=== PATIENT | female | born 1940 | race Caucasian/White ===

== ENCOUNTER → 2018-07-10 | Outpatient (CLI) | payer MEDICARE ==
--- NOTE | 2018-07-13 12:09 | MM ---
Reason for exam: screening (asymptomatic). Last mammogram was performed 1 year ago. History: Patient is postmenopausal. Benign excisional biopsy of the left breast. Physical Findings: A clinical breast exam by your physician is recommended on an annual basis and results should be correlated with mammographic findings. MG 3D Screening Mammo W/Cad Bilateral CC and MLO view(s) were taken. Prior study comparison: July 04, 2017, bilateral MG 3d screening mammo w/cad. January 30, 2016, mammogram, performed at [facility]. The breast tissue is heterogeneously dense. This may lower the sensitivity of mammography. Benign calcifications in the left breast. There is chronic nodularity bilaterally. No significant changes when compared with prior studies. ASSESSMENT: Benign, BI-RAD 2 RECOMMENDATION: Routine screening mammogram of both breasts in 1 year.
== END | disposition home or self-care (01) ==
LOC: RADMAMWWP 10:35
PROVIDERS: ATTEND Internal Medicine
DX: Z12.31 Encounter for screening mammogram for malignant neoplasm of breast (principal)
CPT/HCPCS: 77063; 77067

== ENCOUNTER → 2019-08-19 | Outpatient (CLI) | payer MEDICARE ==
--- NOTE | 2019-08-23 08:44 | MM ---
Reason for exam: screening (asymptomatic). Last mammogram was performed 1 year and 1 month ago. History: Patient is postmenopausal. Benign excisional biopsy of the left breast. Physical Findings: A clinical breast exam by your physician is recommended on an annual basis and results should be correlated with mammographic findings. MG 3D Screening Mammo W/Cad Bilateral CC and MLO view(s) were taken. Prior study comparison: July 10, 2018, bilateral MG 3d screening mammo w/cad. July 04, 2017, bilateral MG 3d screening mammo w/cad. The breast tissue is heterogeneously dense. This may lower the sensitivity of mammography. No significant changes when compared with prior studies. ASSESSMENT: Benign, BI-RAD 2 RECOMMENDATION: Routine screening mammogram of both breasts in 1 year.
== END | disposition home or self-care (01) ==
LOC: RADMAMWWP 11:04
PROVIDERS: ATTEND Internal Medicine
DX: Z12.31 Encounter for screening mammogram for malignant neoplasm of breast (principal)
CPT/HCPCS: 77063; 77067

== ENCOUNTER → 2020-10-20 | Outpatient (CLI) | payer MEDICARE ==
--- NOTE | 2020-10-24 13:53 | MM ---
Reason for exam: additional evaluation requested from prior study. Last mammogram was performed 1 year and 2 months ago. History: Patient is postmenopausal and history of other cancer. Benign excisional biopsy of the left breast. Physical Findings: Nurse did not find any significant physical abnormalities on exam. MG 3D Diag Mammo W/Cad GLADYS Bilateral CC and MLO view(s) were taken. Prior study comparison: August 19, 2019, bilateral MG 3d screening mammo w/cad. July 10, 2018, bilateral MG 3d screening mammo w/cad. The breast tissue is heterogeneously dense. This may lower the sensitivity of mammography. There is chronic nodularity in the left breast. No significant changes when compared with prior studies. ASSESSMENT: Incomplete: need additional imaging evaluation, BI-RAD 0 RECOMMENDATION: Ultrasound of the left breast. Manage patient on a clinical basis.
--- NOTE | 2020-10-24 13:57 | USB ---
Reason for exam: additional evaluation requested from abnormal screening. History: Patient is postmenopausal and history of other cancer. Benign excisional biopsy of the left breast. US Breast Limited LT Left limited breast ultrasound including focal area of concern, retroareolar and axilla demonstrates a 1.4 x 1.6 x 0.7cm irregular, mixed lesion at 12 o'clock for which a biopsy is recommended and a 2.2 x 1.8 x 1.1cm oval lymph node at the axilla. These results were verbally communicated with the patient and result sheet given to the patient on 10/20/20. ASSESSMENT: Suspicious, BI-RAD 4 RECOMMENDATION: Ultrasound core biopsy of the left breast. (12 o'clock) Called Emely Cobb's office with mammographic findings and has scheduled an appointment for the patient for 11/17/20 at 2:[address] Jensen. Biopsy scheduled for 11/08/20 at 10:30. PRELIMINARY REPORT CALLED AND FAXED TO DR. JENSEN ON 10/24/20.
== END | disposition home or self-care (01) ==
LOC: RADMAMWWP 14:14
PROVIDERS: ATTEND Nurse Practitioner Adult Health
DX: N60.01 Solitary cyst of right breast (principal); N60.02 Solitary cyst of left breast; R92.8 Other abnormal and inconclusive findings on diagnostic imaging of breast; N64.4 Mastodynia
CPT/HCPCS: 77066; 76642; G0279; 77062

== ENCOUNTER → 2020-11-08 | Day surgery (SDC) | payer MEDICARE ==
[2020-11-08 10:01] VITALS: BP 153/72; PULSE 105; RESP 16; TEMP 98.1
--- NOTE | 2020-11-08 14:56 | USB ---
EXAMINATION TYPE: US biopsy breast VAD LT, MG post biopsy diagnostic mammo LT wo CAD DATE OF EXAM: 11/08/2020 CLINICAL HISTORY: 80-year-old female R92.8, Abnormal mammogram. Finding incidentally seen during ultrasound of the lateral half of the left breast for pain. TECHNIQUE: Ultrasound guided core biopsy of the 12:00 periareolar left breast. COMPARISON: 10/20/2020 FINDINGS: The procedure of ultrasound guided core biopsy was explained to the patient. Benefits, alternatives, and risks were discussed. An informed consent was then obtained. Indeterminate 1.7 cm ovoid area at the 12:00 periareolar left breast is identified and targeted for biopsy. During real-time scanning, the area may correspond to a dense island of tissue. The patient was placed in supine positioning for imaging and for the procedure. The overlying skin was prepped and draped in usual sterile fashion. Lidocaine was used as anesthetic into the skin and subcutaneous tissue up to area of concern in the 12:00 left breast. Under ultrasound guidance, a 13-gauge vacuum-assisted mammotome biopsy gun was used to obtain 4 core samples. Following this, a ribbon clip was left in lesion. The patient tolerated the procedure well without any immediate complication. The patient was kept in the radiology department for short stay after the procedure and then discharged home in stable condition. Postbiopsy mammogram shows the ribbon clip at or adjacent to an anterior focal asymmetry. IMPRESSION: Successful, uncomplicated ultrasound guided core biopsy of area of concern in the 12:00 anterior left breast, full pathology results to follow. This was incidentally seen during ultrasound for lateral left breast pain. Pathology Results: Benign LEFT BREAST, TWELVE O'CLOCK, CORE BIOPSY: Hypocellular and hylanized stromal fibrosis with focal mild periductal chronic inflammation and focal microcalcification (see note). No evidence of in situ or invasive carcinoma within current specimen. Recommendation Follow up mammogram of the left breast in 6 months. JOSHUA
== END ==
LOC: RADUSWWP 09:36
PROVIDERS: ATTEND Surgery
DX: N60.32 Fibrosclerosis of left breast (principal); R92.0 Mammographic microcalcification found on diagnostic imaging of breast; R92.8 Other abnormal and inconclusive findings on diagnostic imaging of breast; Z88.5 Allergy status to narcotic agent; Z91.09 Other allergy status, other than to drugs and biological substances
CPT/HCPCS: 88305; 77065; 19083; A4648; J2001

== ENCOUNTER → 2020-11-17 | Outpatient (CLI) | payer MEDICARE ==
[2020-11-17 14:28] VITALS: BP 185/76; PULSE 87; RESP 18; TEMP 98.1
--- NOTE | 2020-11-17 16:02 | P.GSHP ---
History of Present Illness H&P Date: 11/17/20 Chief Complaint: Left breast ultrasound abnormality Kisha is an 80 year old white female seen in consultation for Emely Jacbos regarding the radiographic abnormality in the left breast. She initially was complaining of some discomfort in the left breast which had been ongoing for about one month. The pain was located in the 12 to 12:30 position just above the nipple areolar complex. It was described as an uncomfortable sensation. Seen in nature. It is worse when she lays down. He does not associate the onset with any incidents. No trauma, no infection, no change in diet or medications. It is intermittent in nature. It only last for a few minutes when it comes. She had a bilateral mammogram performed on . The mammogram did not show any specific lesions of concern, there was chronic nodularity in the left breast but nothing of concern however secondary to the pain and ultrasound was performed. On the ultrasound an incidental finding of a 1.7 cm open area at the 12:00 lesion was noted and a pleural biopsy was obtained. Core biopsy revealed hypocellular hyalinized stromal fibrosis and focal mild. Ductal chronic inflammation. This was felt to be benign and concordant. The x-rays were reviewed with radiology Dr. So. She has had 2 breast biopsies, open on the left, and one sterobiopsy all benign. The patient does not complain of any lumps masses or nodules in her breast. She is not complaining of any nipple discharge or skin changes. Caffeine: 1 cup of coffee in am nicotine: none chocolate: occasional Family History: sister: uterine brother: bladder cancer 2 paternal aunts: breast cancer Hormonal History: menarche: 10 , 1 miscarriage, breast fed: no, age at first : 18 menopause: hysterectomy at 37, left ovaries BCP: 8 years Surgical History: tonsil appy hysterectomy shoulder 4 bladder suspension 2 breast biopsies Medical History: HTN high cholesterol Social History: smoke: none alcohol: occasional drugs: none - Constitutional Constitutional: Denies chills, Denies fever - EENT Comment: macular degeneration Eyes: denies blurred vision, denies pain Ears: bilateral: tinnitus, deny: decreased hearing Ears, nose, mouth and throat: Denies headache, Denies sore throat - Breasts Breasts: bilateral: as per HPI - Cardiovascular Cardiovascular: Denies chest pain, Denies shortness of breath - Respiratory Respiratory: Denies cough, Denies 7 - Gastrointestinal Gastrointestinal: Reports constipation, Denies abdominal pain, Denies diarrhea, Denies nausea, Denies vomiting - Genitourinary (Female) Comment: 4 bladder suspensions Genitourinary: Denies dysuria, Denies hematuria - Menstruation Menstruation: Reports postmenopausal - Musculoskeletal Musculoskeletal: Denies myalgias - Integumentary Integumentary: Denies pruritus, Denies rash - Neurological Comment: carpal tunnel left hand - Psychiatric Psychiatric: Denies anxiety, Denies depression - Endocrine Endocrine: Denies fatigue, Denies weight change - Hematologic/Lymphatic Comment: baby aspirin - Allergic/Immunologic Allergic/Immunologic: Reports as per HPI 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 History of Any Multi-Drug Resistant Organisms: None Reported Past Surgical History: Appendectomy, Breast Surgery, Hysterectomy, Tonsillectomy Additional Past Surgical History / Comment(s): Bladder suspension, benign excisional biopsy left breast, lip surgery Past Anesthesia/Blood Transfusion Reactions: No Reported Reaction Past Psychological History: No Psychological Hx Reported Smoking Status: Never smoker Past Alcohol Use History: Occasional Past Drug Use History: None Reported - Past Family History Brother(s) Family Medical History: Cancer Additional Family Medical History / Comment(s): bladder cancer Father Family Medical History: Myocardial Infarction ([place]) Additional Family Medical History / Comment(s): Mother Family Medical History: CVA/TIA Sister(s) Family Medical History: Cancer, CVA/TIA Additional Family Medical History / Comment(s): uterine cancer Medications and Allergies Home Medications Medication Instructions Recorded Confirmed Type Amitriptyline HCl [Elavil] 10 mg PO HS 08/20/15 11/17/20 History Ascorbic Acid [Vitamin C] 500 mg PO DAILY 08/20/15 11/17/20 History Aspirin [Adult Low Dose Aspirin EC] 81 mg PO HS 08/20/15 11/17/20 History Glucosamine/Chondr Kay A Sod [Osteo 1 tab PO DAILY 08/20/15 11/17/20 History Bi-Flex Caplet] Levothyroxine Sodium [Synthroid] 125 mcg PO DAILY 08/20/15 11/17/20 History Magnesium Hydroxide [Milk of 2,400 mg PO HS 08/20/15 11/17/20 History Magnesia Concentrate] [place]-3 Fatty Acids/Fish Oil [Fish 1 cap PO DAILY 08/20/15 11/17/20 History Oil 1,000 mg Softgel] Omeprazole [PriLOSEC] 20 mg PO AC-BRKFST 08/20/15 11/17/20 History Rosuvastatin [Crestor] 20 mg PO HS 08/20/15 11/17/20 History amLODIPine [Norvasc] 10 mg PO HS 08/20/15 11/17/20 History Calcium Carbonate [Calcium] 600 mg PO DAILY 11/02/20 11/17/20 History Cholecalciferol [Vitamin D3 (10 10 mcg PO DAILY 11/02/20 11/17/20 History Mcg = 400 Iu)] Ibandronate Sodium [Boniva] 150 mg PO QMONTHLY 11/02/20 11/17/20 History Multivit-Min/Iron/Folic/Lutein 1 each PO DAILY 11/02/20 11/17/20 History [Centrum Silver Women Tablet] Oxybutynin Chloride 5 mg PO DAILY 11/02/20 11/17/20 History Potassium Chloride [Klor-Con 20] 20 meq PO DAILY 11/02/20 11/17/20 History hydroCHLOROthiazide 25 mg PO DAILY 11/02/20 11/17/20 History lisinopriL 40 mg PO DAILY 11/02/20 11/17/20 History Cranberry Fruit Extract [Cranberry] 200 mg PO DAILY 11/17/20 11/17/20 History Allergies Allergy/AdvReac Type Severity Reaction Status Date / Time adhesive Allergy Rash/Hives Verified 11/17/20 14:28 codeine Allergy Rash/Hives Verified 11/17/20 14:28 Surgical - Exam Vital Signs Temp Pulse Resp BP Pulse Ox 98.1 F 87 18 185/76 96 11/17/20 14:25 11/17/20 14:25 11/17/20 14:25 11/17/20 14:25 11/17/20 14:25 BMI 28.9 - General well developed, well nourished, no distress - Eyes normal ocular movement - ENT normal pinna, normal nares - Neck no masses, trachea midline - Respiratory normal expansion, normal respiratory effort, clear to auscultation - Cardiovascular Rhythm: regular Heart Sounds: normal: S1, S2 - Abdomen Abdomen: soft - Integumentary normal turgor - Neurologic no disoriented, no combative - Musculoskeletal normal gait - Psychiatric oriented to time, oriented to person, oriented to place, speech is normal, memory intact Breast exam: BRA: 42C inspection: bilateral grade 3 ptosis, left breast larger than the right breast, well-healed scars left breast from prior biopsy Palpation: right breast: Multi-positional exam, no dominant masses or nodules of concern, other cystic changes Right axilla: No adenopathy of concern Left breast: Multi-positional exam fibrocystic changes, increased fullness 12 o'clock position corresponding to the area where the biopsy was done, this is tender to palpation, biopsy site is clean and dry with no evidence of infection, no dominant masses or nodules of concern Left axilla: No adenopathy of concern Results Mammogram and ultrasound reviewed independently with radiology and the area of concern appears to have been adequately sampled Assessment and Plan Assessment: Impression: HTN high cholesterol Ultrasound abnormality left breast, core biopsy benign felt to be benign concordant Palpable fullness at site of biopsy appears to be related to the biopsy itself Mastodynia left breast/patient had prior left breast biopsies patient drinks coffee daily Plan: 1. Repeat left breast ultrasound in 4 months with physician exam at that time 2. Pain is felt to be related to fibrocystic changes and possible old scar tissue nothing which would report intervention at this time 3. book given on breast pain, consider primrose oil 4. Consider decreasing caffeine intake Cc: MARISOL Albrecht encounter 45 minutes, time spent in physical examination, reviewing medical re cords, and counseling.
== END | disposition home or self-care (01) ==
LOC: WWCWWP 14:07
PROVIDERS: ATTEND Surgery
DX: N64.4 Mastodynia (principal); I10 Essential (primary) hypertension; E78.00 Pure hypercholesterolemia, unspecified; E03.9 Hypothyroidism, unspecified; K21.9 Gastro-esophageal reflux disease without esophagitis; E78.5 Hyperlipidemia, unspecified; M19.90 Unspecified osteoarthritis, unspecified site; Z90.710 Acquired absence of both cervix and uterus

== ENCOUNTER → 2021-03-13 | Outpatient (CLI) | payer MEDICARE | END | disposition home or self-care (01) | DX: R92.8 Other abnormal and inconclusive findings on diagnostic imaging of breast (principal) ==

== ENCOUNTER → 2021-03-16 | Outpatient (CLI) | payer MEDICARE ==
[2021-03-16 13:09] VITALS: BP 172/68; PULSE 79; RESP 18; TEMP 98.2
--- NOTE | 2021-03-16 13:25 | P.PN ---
Subjective Progress Note Date: 03/16/21 Principal diagnosis: fibrocystic breast changes Kisha is an 80 year old white female seen in consultation for Emely Jacobs regarding the radiographic abnormality in the left breast on 11-17-20. She initially was complaining of some discomfort in the left breast which had been ongoing for about one month. The pain was located in the 12 to 12:30 position just above the nipple areolar complex. It was described as an uncomfortable sensation. Seen in nature. It was worse when she lays down. He does not associate the onset with any incidents. No trauma, no infection, no change in diet or medications. It is intermittent in nature. It only last for a few minutes when it comes. The discomfort has improved since her last visit. She had a bilateral mammogram performed on . The mammogram did not show any specific lesions of concern, there was chronic nodularity in the left breast but nothing of concern however secondary to the pain and ultrasound was performed. Secondary to the pain and ultrasound was done of the breast which led to a core biopsy on 3320. Core biopsy revealed hypocellular hyalinized stromal fibrosis and focal mild. Ductal chronic inflammation. This was felt to be benign and concordant. The x-rays were reviewed with radiology Dr. So. She has had 2 breast biopsies, open on the left, and one sterobiopsy all benign. The patient does not complain of any lumps masses or nodules in her breast. She is not complaining of any nipple discharge or skin changes. She recently had a left breast ultrasound on 7620. This was felt to be probably benign BIRADS 3 and ultrasound of the left breast in 6 months was recommended. Caffeine: 1 cup of coffee in am nicotine: none chocolate: occasional Family History: sister: uterine brother: bladder cancer 2 paternal aunts: breast cancer Hormonal History: menarche: 10 , 1 miscarriage, breast fed: no, age at first : 18 menopause: hysterectomy at 37, left ovaries BCP: 8 years Surgical History: tonsil appy hysterectomy shoulder 4 bladder suspension 2 breast biopsies Medical History: HTN high cholesterol Social History: smoke: none alcohol: occasional drugs: none - Constitutional Constitutional: Denies chills, Denies fever - EENT Comment: macular degeneration Eyes: denies blurred vision, denies pain Ears: bilateral: tinnitus, deny: decreased hearing Ears, nose, mouth and throat: Denies headache, Denies sore throat - Breasts Breasts: bilateral: as per HPI - Cardiovascular Cardiovascular: Denies chest pain, Denies shortness of breath - Respiratory Respiratory: Denies cough, - Gastrointestinal Gastrointestinal: Reports constipation, Denies abdominal pain, Denies diarrhea, Denies nausea, Denies vomiting - Genitourinary (Female) Comment: 4 bladder suspensions Genitourinary: Denies dysuria, Denies hematuria - Menstruation Menstruation: Reports postmenopausal - Musculoskeletal Musculoskeletal: Denies myalgias - Integumentary Integumentary: Denies pruritus, Denies rash - Neurological Comment: carpal tunnel left hand - Psychiatric Psychiatric: Denies anxiety, Denies depression - Endocrine Endocrine: Denies fatigue, Denies weight change - Hematologic/Lymphatic Comment: baby aspirin - Allergic/Immunologic Allergic/Immunologic: Reports as per HPI Objective - Vital Signs Vital signs: Vital Signs Temp 98.2 F 03/16/21 13:06 Pulse 79 03/16/21 13:06 Resp 18 03/16/21 13:06 BP 172/68 03/16/21 13:06 Pulse Ox 97 03/16/21 13:06 Intake & Output 03/15/21 03/16/21 03/16/21 18:59 06:59 18:59 Weight 70.307 kg - Exam BMI: 29.3 - Constitutional General appearance: Present: average body habitus - EENT Eyes: Present: EOMI ENT: Present: hearing grossly normal - Respiratory Respiratory: bilateral: CTA - Cardiovascular Rhythm: regular Heart sounds: normal: S1, S2 - Integumentary Integumentary: Present: normal turgor - Musculoskeletal Musculoskeletal: Present: gait normal - Psychiatric Psychiatric: Present: A&O x's 3, appropriate affect, intact judgment & insight - Additional findings Additional findings: Breast exam: BRA: 42C Inspection: Bilateral grade 3 ptosis, right breast smaller than left breast Palpation: Right breast: Multiple positional exam fibrocystic changes no dominant masses or nodules of concern Right axilla: No adenopathy of concern Left breast: Multi-positional exam fibrocystic changes no dominant masses or nodules of concern Left axilla: No adenopathy of concern Assessment and Plan Assessment: Impression: 1. Stable left breast ultrasound nothing which would warrant interventional biopsy at this time 2. Bilateral mammogram and left breast ultrasound in 6 months 3. High cholesterol 4. Mastodynia improved Plan: 1. Bilateral mammogram and left breast ultrasound in 6 months with physician exam at that time 2. Decreased pain in the breast 3. Patient to call sooner if any questions or concerns CC: Dr. Saul
== END ==
LOC: WWCWWP 13:01
PROVIDERS: ATTEND Surgery
DX: N64.4 Mastodynia (principal); E78.00 Pure hypercholesterolemia, unspecified; I10 Essential (primary) hypertension; Z91.048 Other nonmedicinal substance allergy status; Z88.5 Allergy status to narcotic agent

== ENCOUNTER → 2021-04-16 | Outpatient (CLI) | payer MEDICARE ==
--- NOTE | 2021-04-16 14:53 | US ---
EXAMINATION TYPE: US kidneys/renal and bladder DATE OF EXAM: 04/16/2021 COMPARISON: None CLINICAL HISTORY: N20.2 Renal kidney stones. pain. Hx [address] 2014 showed possibl e calculus within the bladder. EXAM MEASUREMENTS: Right Kidney: 9.3 x 4.7 x 4.8 cm Left Kidney: 9.6 x 4.1 x 5.2 cm Right Kidney: Multiple tiny cortical cysts. Largest lower pole exophytic = 1.2 x 1.2 x 1.1 cm Left Kidney: Multiple adriano cortical cysts. Largest lower pole = 0.9 x 1.0 x 0.8 cm Bladder: distended. Echogenic focus seen, nonmobile- 1.2 cm. Bilateral Jets not seen Incidental finding: Cystic lesion seen in spleen = 1.5 x 1.2 x 1.2 cm IMPRESSION: 1. Bilateral renal cysts. 2. Echogenic mobile focus within the urinary bladder of uncertain etiology. Consider additional kimani p
== END | disposition home or self-care (01) ==
LOC: RADUSWWP 13:45
PROVIDERS: ATTEND Family Medicine
DX: N28.1 Cyst of kidney, acquired (principal); N20.2 Calculus of kidney with calculus of ureter
CPT/HCPCS: 76770

== ENCOUNTER → 2021-05-30 | Outpatient (CLI) | payer MEDICARE ==
--- NOTE | 2021-05-30 11:48 | CT ---
EXAMINATION TYPE: CT urogram wo/w con DATE OF EXAM: 05/30/2021 HISTORY: hematuria, frequent UTIs CT DLP: 2214.9mGycm Automated Exposure Control for Dose Reduction was Utilized. CONTRAST: CT scan of the abdomen and pelvis is performed without oral and without and with IV Contrast, patient injected with 100 mL of Isovue 300. Urogram protocol with 3-D reconstructed images created on an [employer] workstation and reviewed. COMPARISON: CT abdomen and pelvis August 21, 2015 FINDINGS: KUB: Noncontrast images show single 2 mm calculus lower pole level immediately axial series 4 image 6 8. There is similar 1 to 2 mm stone lower pole left kidney coronal image 73. Postcontrast images show symmetric cortical medullary uptake and excretion without hydronephrosis see n bilaterally. Occasional hypodense lesions scattered throughout right kidney favors benign thin-wall ed cyst. 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 No concerning solid or cystic renal mass in either kidney. Satisfactory opacification of the ureters without hydronephrosis or obstructing mass or calculus. The re is additional 7 mm nondependent calculus within the lumen of gallbladder axial image 116 series 4. Nondependent air in bladder is noted. LUNG BASES: Mild bibasilar linear scarring and/or atelectasis. LIVER/GB: Possible small dependent gallstone near gallbladder neck axial image 23 series 5. No Surrou nding inflammatory change noted. Possible additional stone anterior inferior fundus slightly larger a xial image 29. No biliary dilatation. PANCREAS: No significant abnormality is seen. 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 Small hypodense lesion left superio r aspect 1.9 x 1.5 cm favors benign etiology such as thin-walled cyst. ADRENALS: No significant abnormality is seen. BOWEL: Few sigmoid colonic diverticula.. UTERUS/ADNEXA: Uterus surgically absent or markedly atrophic. LYMPH NODES: No greater than 1cm abdominal or pelvic lymph nodes are appreciated. OSSEOUS STRUCTURES: Slight grade 1 retrolisthesis L1 on L2 and L2 on L3. Mild to moderate disc space narrowing L1-L2 level. Moderate axial joint space loss both hips. Mild/moderate multilevel anterior a nd lateral spurring. OTHER: Moderate to large sized fat-containing umbilical hernia. IMPRESSION: Tiny lower pole nonobstructing renal calculi. Larger 7 mm intraluminal calculus within bl adder. Nondependent air is present, correlate clinically for recent catheterization otherwise other e tiologies such as fistula need to be considered. Correlate clinically.
== END | disposition home or self-care (01) ==
LOC: RADCTMAIN 09:09
PROVIDERS: ATTEND Urology
DX: N20.0 Calculus of kidney (principal); N21.0 Calculus in bladder
CPT/HCPCS: 82565; 84520; 74178; 36415; 74400; Q9967

== ENCOUNTER → 2021-08-24 | Outpatient (CLI) | payer MEDICARE ==
--- NOTE | 2021-08-25 18:22 | CT ---
EXAMINATION TYPE: CT chest abdomen w con CT DLP: 1287 mGycm, Automated exposure control for dose reduction was used. DATE OF EXAM: 08/24/2021 2:53 PM COMPARISON: Multiple CTs of the chest with most recent on 05/30/2021 CLINICAL INDICATION:Female, 81 years old with history of R05 cough, R63.4 weight loss; PHH, abdominal pain, cough, weight loss Technique: Multiple axial images of the chest, abdomen, and pelvis were obtained following the intrav enous administration of 100 mL Isovue-300. Two-dimensional coronal and sagittal reconstructions were obtained. Findings: CHEST: LUNGS/ PLEURA: No evidence of mass. Subsegmental atelectasis/scarring scattered throughout the lungs. AIRWAY: Patent and unremarkable.. HEART: Size within normal limits. . MEDIASTINUM: No gross evidence of adenopathy. VASCULATURE: No aortic aneurysm. MUSCULOSKELETAL: No acute osseous abnormalities SOFT TISSUES/LYMPH NODES: Unremarkable. LOWER NECK: No significant findings. ABDOMEN: ABDOMEN LIVER: Unremarkable GALLBLADDER AND BILE DUCTS: Unremarkable. PANCREAS: Unremarkable. SPLEEN: There are hypodensities seen throughout the spleen that have increased in size from 2015. The spleen is also slightly larger from 2015 and subtle heterogenous geographic areas of low attenuation on portal venous imaging. this geographic area equalizes to background spleen on the 3 minute delaye d imaging. ADRENAL GLANDS: Unremarkable. KIDNEYS AND URETERS: No evidence of hydronephrosis or renal calculus. The ureters are unremarkable. There are low-density probable cyst identified throughout the kidneys. 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 PELVIS BLADDER: Unremarkable REPRODUCTIVE: Unremarkable. ABDOMEN & PELVIS STOMACH AND BOWEL: No evidence of bowel obstruction. PERITONEUM: No evidence of pneumoperitoneum or free fluid. VASCULATURE: No evidence of aortic aneurysm. 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 MUSCULOSKELETAL: No acute osseous abnormalities LYMPH NODES: No gross evidence for lymphadenopathy. SOFT TISSUE/ABDOMINAL WALL: Unremarkable IMPRESSION: Subtle geographic areas of low density within the spleen which is also mildly increased in size from 2015. Infiltrative pathologies such as lymphoma are not entirely ruled out. Further evaluation with M RI abdomen with IV contrast is recommended.
== END | disposition home or self-care (01) ==
LOC: RADCTMAIN 13:30
PROVIDERS: ATTEND Family Medicine
DX: R63.4 Abnormal weight loss (principal); R05.9 Cough, unspecified
CPT/HCPCS: 82565; 84520; 71260; 74160; 36415; Q9967

== ENCOUNTER → 2021-10-05 | Outpatient (CLI) | payer MEDICARE ==
--- NOTE | 2021-10-05 16:16 | MR ---
MR abdomen with and without contrast HISTORY: Abnormal CT Multiplanar multisequence and postcontrast images obtained through the abdomen following 7 cc Gadavis t IV. Correlation to CT dated 08/24/2021 The signal abnormalities seen within the spleen on MRI correspond to CT findings, consistent with cys t along the anterior margin of the spleen, largest focus measures approximately 2 cm, along the inner margin of the spleen similar cystic focus is present as previously described. T2 weighted sequences show multiple foci of T2 hyperintensity which are felt likely to represent cysts but are too small to characterize, T1-weighted images do not show any focal definitive corresponding signal, there is mot ion present on the exam. T2 bright foci are scattered within the kidneys corresponding to cystic foci seen on CT. No definite abnormal enhancement following contrast administration. No retroperitoneal adenopathy or adrenal mass , aorta shows normal caliber. The liver is stable. Pancreas is unremarkable. Lung bases show no effus ion. There is a hiatal hernia present. IMPRESSION: Findings felt likely to represent splenic cysts seen on CT, follow-up could be performed to assess for stability. Additional multiple scattered T2 bright foci seen on T2-weighted images are subcentimeter in size and indeterminate, not seen on T1-weighted images. There are limitations the ex am.
== END | disposition home or self-care (01) ==
LOC: RADMRIMAIN 12:00
PROVIDERS: ATTEND Family Medicine
DX: R93.89 Abnormal findings on diagnostic imaging of other specified body structures (principal)
CPT/HCPCS: 74183; A9585

== ENCOUNTER → 2021-10-22 | Outpatient (CLI) | payer MEDICARE ==
--- NOTE | 2021-10-23 08:09 | MM ---
Reason for exam: additional evaluation requested from prior study. Last mammogram was performed 11 months ago. History: Patient is postmenopausal and history of other cancer. Benign US biopsy breast VAD LT of the left breast, November 08, 2020. Benign excisional biopsy of the left breast. Physical Findings: Nurse did not find any significant physical abnormalities on exam. MG 3D Diag Mammo W/Cad GLADYS Bilateral CC and MLO view(s) were taken. Prior study comparison: November 08, 2020, left breast MG diagnostic mammo LT wo CAD. October 20, 2020, bilateral MG 3d diag mammo w/cad GLADYS. There are scattered fibroglandular densities. Previous mammotome biopsy in the left breast. There is chronic nodularity in the left breast. Stable right low axillary node. No significant new findings when compared with previous films. These results were verbally communicated with the patient and result sheet given to the patient on 10/22/21. ASSESSMENT: Incomplete: need additional imaging evaluation, BI-RAD 0 RECOMMENDATION: Ultrasound of the left breast. (follow up per previous recommendation)
--- NOTE | 2021-10-23 08:11 | USB ---
Reason for exam: additional evaluation requested from abnormal screening. History: Patient is postmenopausal and history of other cancer. Benign US biopsy breast VAD LT of the left breast, November 08, 2020. Benign excisional biopsy of the left breast. US Breast Limited LT Left limited breast ultrasound including focal area of concern, retroareolar and axilla demonstrates a 17 x 6 x 13mm oval, solid, hyperechoic lesion at 12 o'clock, unchanged from previous, previously biopsied. Scanned 11-1 o'clock. These results were verbally communicated with the patient and result sheet given to the patient on 10/22/21. ASSESSMENT: Benign, BI-RAD 2 RECOMMENDATION: Routine screening mammogram of both breasts in 1 year.
== END | disposition home or self-care (01) ==
LOC: RADMAMWWP 13:09
PROVIDERS: ATTEND Surgery
DX: R92.8 Other abnormal and inconclusive findings on diagnostic imaging of breast (principal)
CPT/HCPCS: 77066; 76642; G0279; 77062

== ENCOUNTER 2022-02-18 19:18 | Emergency (ER) | payer MEDICARE ==
[2022-02-18 19:34] VITALS: RESP 18; TEMP 98.7
--- NOTE | 2022-02-18 20:08 | ED ---
General Adult HPI - General Source: patient, family, EMS Mode of arrival: EMS Limitations: no limitations <Iman Castellon - Last Filed: 02/18/22 21:54> <Michael Keith - Last Filed: 02/18/22 23:26> - General Chief complaint: Syncope Stated complaint: Syncope, Collapse, Head Injury Time Seen by Provider: 02/18/22 19:46 - History of Present Illness Initial comments: 81-year-old female who presents emergency department for syncope. She was at a T-ball game sitting in the bleachers when she told her she felt like she was going to pass out. states that the patient fell backwards and eyes rolled back into her head. She hit the back of her head on the bleachers. She was out for several seconds for coming to. She denies having any chest pain but does admit to shortness of breath. No headaches or visual changes. She is not on any blood thinners. Denies any neck pain. No recent illnesses. No other alleviating, precipitating or modifying factors (Iman Castellon) - Related Data Home Medications Medication Instructions Recorded Confirmed Amitriptyline HCl [Elavil] 10 mg PO HS 08/20/15 02/18/22 Ascorbic Acid [Vitamin C] 1,000 mg PO DAILY 08/20/15 02/18/22 Aspirin [Adult Low Dose Aspirin EC] 81 mg PO HS 08/20/15 02/18/22 Glucosamine/Chondr Kay A Sod [Osteo 1 tab PO DAILY 08/20/15 02/18/22 Bi-Flex Caplet] Magnesium Hydroxide [Milk of 2,400 mg PO DAILY 08/20/15 02/18/22 Magnesia Concentrate] Rosuvastatin [Crestor] 20 mg PO HS 08/20/15 02/18/22 amLODIPine [Norvasc] 10 mg PO HS 08/20/15 02/18/22 Calcium Carbonate [Calcium] 600 mg PO DAILY 11/02/20 02/18/22 Ibandronate Sodium [Boniva] 150 mg PO Q30D 11/02/20 02/18/22 Multivit-Min/Iron/Folic/Lutein 1 each PO DAILY 11/02/20 02/18/22 [Centrum Silver Women Tablet] Potassium Chloride [Klor-Con 20] 20 meq PO DAILY 11/02/20 02/18/22 lisinopriL 40 mg PO DAILY 11/02/20 02/18/22 Albuterol Inhaler [Ventolin Hfa 2 puff INHALATION RT-QID PRN 02/18/22 02/18/22 Inhaler] Cholecalciferol [Vitamin D3 (25 25 mcg PO DAILY 02/18/22 02/18/22 Mcg = 1000 Iu)] Cranberry Fruit Extract [Cranberry] 500 mg PO DAILY 02/18/22 02/18/22 Hydrocortisone Pr Cream 1 applic RECTAL BID 02/18/22 02/18/22 [Proctosol-Hc 2.5%] Levothyroxine Sodium [Synthroid] 112 mcg PO DAILY 02/18/22 02/18/22 Omeprazole Magnesium [PriLOSEC OTC] 20 mg PO Q48H 02/18/22 02/18/22 Oxybutynin Chloride [Oxybutynin 10 mg PO DAILY 02/18/22 02/18/22 Chloride ER] Triamcinolone 0.1% Cream [Kenalog 1 applicatio TOPICAL BID 02/18/22 02/18/22 0.1% Cream] Triamterene-Hctz 37.5-25Mg 1 cap PO DAILY 02/18/22 02/18/22 [Dyazide 37.5-25 Capsule] Allergies Allergy/AdvReac Type Severity Reaction Status Date / Time adhesive Allergy Rash/Hives Verified 02/18/22 21:52 codeine Allergy Rash/Hives Verified 02/18/22 21:52 Review of Systems ROS Other: All systems not noted in ROS Statement are negative. <Iman Castellon A - Last Filed: 02/18/22 21:54> ROS Other: All systems not noted in ROS Statement are negative. <Michael Keith - Last Filed: 02/18/22 23:26> ROS Statement: Those systems with pertinent positive or pertinent negative responses have been documented in the HPI. 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 History of Any Multi-Drug Resistant Organisms: None Reported Past Surgical History: Appendectomy, Breast Surgery, Hysterectomy, Tonsillectomy Additional Past Surgical History / Comment(s): Bladder suspension, benign excisional biopsy left breast, lip surgery Past Anesthesia/Blood Transfusion Reactions: No Reported Reaction Past Psychological History: No Psychological Hx Reported Smoking Status: Never smoker Past Alcohol Use History: Occasional Past Drug Use History: None Reported - Past Family History Brother(s) Family Medical History: Cancer Additional Family Medical History / Comment(s): bladder cancer Father Family Medical History: Myocardial Infarction (ME) Additional Family Medical History / Comment(s): Mother Family Medical History: CVA/TIA Sister(s) Family Medical History: Cancer, CVA/TIA Additional Family Medical History / Comment(s): uterine cancer <Iman Castellon - Last Filed: 02/18/22 21:54> General Exam Limitations: no limitations <Iman Castellon - Last Filed: 02/18/22 21:54> General appearance: alert, in no apparent distress Head exam: Present: atraumatic, normocephalic, normal inspection Eye exam: Present: normal appearance, PERRL, EOMI. Absent: scleral icterus, conjunctival injection, periorbital swelling ENT exam: Present: normal exam, mucous membranes moist Neck exam: Present: normal inspection. Absent: tenderness, meningismus, l ymphadenopathy Respiratory exam: Present: normal lung sounds bilaterally. Absent: respiratory distress, wheezes, rales, rhonchi, stridor Cardiovascular Exam: Present: regular rate, normal rhythm, normal heart sounds. Absent: systolic murmur, diastolic murmur, rubs, gallop, clicks GI/Abdominal exam: Present: soft, normal bowel sounds. Absent: distended, tenderness, guarding, rebound, rigid Extremities exam: Present: normal inspection, full ROM, normal capillary refill. Absent: tenderness, pedal edema, joint swelling, calf tenderness Back exam: Present: normal inspection Neurological exam: Present: alert, oriented X3, CN II-XII intact Psychiatric exam: Present: normal affect, normal mood Skin exam: Present: warm, dry, intact, normal color. Absent: rash <Michael Keith - Last Filed: 02/18/22 23:26> Course <Michael Keith - Last Filed: 02/18/22 23:26> Vital Signs 02/18/22 19:32 Temperature 98.7 F Pulse Rate 83 Respiratory 18 Rate Blood Pressure 181/79 O2 Sat by Pulse 98 Oximetry - Reevaluation(s) Reevaluation #1: 02/18/22 23:25 Medical record is reviewed (Michael Keith) Reevaluation #2: 02/18/22 23:25 Is without complaint no headache chest pain shortness of breath or abdominal pain (Michael Keith) Reevaluation #3: 02/18/22 23:25 Patient family informed of results questions have been answered (Aleksandra Keith) EKG Findings - EKG Comments: EKG Findings:: EKG demonstrates sinus rhythm with a rate of 72. LA 165. QRS 86 . QTC of 396. J-point elevation 2, 3, aVF. No reciprocal changes <Iman Castellon - Last Filed: 02/18/22 21:54> Medical Decision Making - Lab Data Result diagrams: 02/18/22 19:49 02/18/22 19:49 <Iman Castellon - Last Filed: 02/18/22 21:54> - Lab Data Result diagrams: 02/18/22 19:49 02/18/22 19:49 - Radiology Data Radiology results: report reviewed (CT chest negative for acute disease), image reviewed <Michael Keith - Last Filed: 02/18/22 23:26> - Medical Decision Making Upon arrival patient is placed in room 1. Thorough history and physical exam was performed. Hooked to continuous pulse ox and cardiac monitoring. Laboratory studies are obtained and reviewed. D-dimer still pending at this time and the patient will be signed out to Dr. Keith. (Iman Castellon) 81 female status post syncopal event. No significant injury noted. No arrhythmia noted. No significant history of heart disease. Maybe a little dehydration patient given hydration feels well no recurrent syncope patient can be discharged home no current headache chest pain shortness of breath or abdominal pain (Michael Keith) - Lab Data Lab Results 02/18/22 02/18/22 02/18/22 Range/Units 19:49 19:49 19:49 WBC 13.9 H (3.8-10.6) k/uL RBC 4.13 (3.80-5.40) m/uL Hgb 12.5 (11.4-16.0) gm/dL Hct 39.9 (34.0-46.0) % MCV 96.7 (80.0-100.0) fL MCH 30.3 (25.0-35.0) pg MCHC 31.3 (31.0-37.0) g/dL RDW 14.2 (11.5-15.5) % Plt Count 201 (150-450) k/uL MPV 8.4 Neutrophils % 75 % Lymphocytes % 15 % Monocytes % 6 % Eosinophils % 1 % Basophils % 1 % Neutrophils # 10.4 H (1.3-7.7) k/uL Lymphocytes # 2.1 (1.0-4.8) k/uL Monocytes # 0.9 (0-1.0) k/uL Eosinophils # 0.1 (0-0.7) k/uL Basophils # 0.1 (0-0.2) k/uL PT 10.9 (9.0-12.0) sec INR 1.0 (<1.2) APTT 18.3 L (22.0-30.0) sec D-Dimer (<0.60) mg/L FEU Sodium 138 (137-145) mmol/L Potassium 4.2 (3.5-5.1) mmol/L Chloride 107 (98-107) mmol/L Carbon Dioxide 23 (22-30) mmol/L Anion Gap 8 mmol/L BUN 43 H (7-17) mg/dL Creatinine 1.06 H (0.52-1.04) mg/dL Est GFR (CKD-EPI)AfAm 57 (>60 ml/min/1.73 sqM) Est GFR (CKD-EPI)NonAf 49 (>60 ml/min/1.73 sqM) Glucose 155 H (74-99) mg/dL Calcium 9.5 (8.4-10.2) mg/dL Total Bilirubin 0.4 (0.2-1.3) mg/dL AST 22 (14-36) U/L ALT 24 (4-34) U/L Alkaline Phosphatase 93 (38-126) U/L Troponin I (0.000-0.034) ng/mL Total Protein 5.9 L (6.3-8.2) g/dL Albumin 3.9 (3.5-5.0) g/dL TSH 0.982 (0.465-4.680) mIU/L Urine Color Urine Appearance (Clear) Urine pH (5.0-8.0) Ur Specific Humble (1.001-1.035) Urine Protein (Negative) Urine Glucose (UA) (Negative) Urine Ketones (Negative) Urine Blood (Negative) Urine Nitrite (Negative) Urine Bilirubin (Negative) Urine Urobilinogen (<2.0) mg/dL Ur Leukocyte Esterase (Negative) Urine RBC (0-5) /hpf Urine WBC (0-5) /hpf Ur Squamous Epith Cells (0-4) /hpf Urine Bacteria (None) /hpf Hyaline Casts (0-2) /lpf Urine Mucus (None) /hpf 02/18/22 02/18/22 02/18/22 Range/Units 19:49 19:49 19:57 WBC (3.8-10.6) k/uL RBC (3.80-5.40) m/uL Hgb (11.4-16.0) gm/dL Hct (34.0-46.0) % MCV (80.0-100.0) fL MCH (25.0-35.0) pg MCHC (31.0-37.0) g/dL RDW (11.5-15.5) % Plt Count (150-450) k/uL MPV Neutrophils % % Lymphocytes % % Monocytes % % Eosinophils % % Basophils % % Neutrophils # (1.3-7.7) k/uL Lymphocytes # (1.0-4.8) k/uL Monocytes # (0-1.0) k/uL Eosinophils # (0-0.7) k/uL Basophils # (0-0.2) k/uL PT (9.0-12.0) sec INR (<1.2) APTT (22.0-30.0) sec D-Dimer 1.57 H (<0.60) mg/L FEU Sodium (137-145) mmol/L Potassium (3.5-5.1) mmol/L Chloride (98-107) mmol/L Carbon Dioxide (22-30) mmol/L Anion Gap mmol/L BUN (7-17) mg/dL Creatinine (0.52-1.04) mg/dL Est GFR (CKD-EPI)AfAm (>60 ml/min/1.73 sqM) Est GFR (CKD-EPI)NonAf (>60 ml/min/1.73 sqM) Glucose (74-99) mg/dL Calcium (8.4-10.2) mg/dL Total Bilirubin (0.2-1.3) mg/dL AST (14-36) U/L ALT (4-34) U/L Alkaline Phosphatase (38-126) U/L Troponin I <0.012 (0.000-0.034) ng/mL Total Protein (6.3-8.2) g/dL Albumin (3.5-5.0) g/dL TSH (0.465-4.680) mIU/L Urine Color Light Yellow Urine Appearance Turbid H (Clear) Urine pH 7.5 (5.0-8.0) Ur Specific Humble 1.009 (1.001-1.035) Urine Protein Negative (Negative) Urine Glucose (UA) Negative (Negative) Urine Ketones Negative (Negative) Urine Blood Negative (Negative) Urine Nitrite Negative (Negative) Urine Bilirubin Negative (Negative) Urine Urobilinogen <2.0 (<2.0) mg/dL Ur Leukocyte Esterase Moderate H (Negative) Urine RBC 1 (0-5) /hpf Urine WBC 18 H (0-5) /hpf Ur Squamous Epith Cells 6 H (0-4) /hpf Urine Bacteria Occasional H (None) /hpf Hyaline Casts 3 H (0-2) /lpf Urine Mucus Rare H (None) /hpf Disposition <Iman Castellon A - Last Filed: 02/18/22 21:54> Is patient prescribed a controlled substance at d/c from ED?: No <Michael Keith - Last Filed: 02/18/22 23:26> Clinical Impression: Vasovagal syncope, Dehydration Disposition: HOME SELF-CARE Condition: Good Instructions (If sedation given, give patient instructions): Syncope (ED) Referrals: Finn Saul MD [Primary Care Provider] - 1-2 days
[2022-02-18 20:15] LABS: Basophils # (A) 0.1 k/uL (0-0.2); Basophils % (A) 1 %; Eosinophils # (A) 0.1 k/uL (0-0.7); Eosinophils % (A) 1 %; HCT 39.9 % (34.0-46.0); HGB 12.5 gm/dL (11.4-16.0); Lymphocytes # (A) 2.1 k/uL (1.0-4.8); Lymphocytes % (A) 15 %; MCH 30.3 pg (25.0-35.0); MCHC 31.3 g/dL (31.0-37.0); MCV 96.7 fL (80.0-100.0); Mean Platelet Volume 8.4; Monocytes # (A) 0.9 k/uL (0-1.0); Monocytes % (A) 6 %; Neutrophils # (A) 10.4 k/uL (1.3-7.7); Neutrophils % (A) 75 %; Platelet Count 201 k/uL (150-450); RBC 4.13 m/uL (3.80-5.40); RDW 14.2 % (11.5-15.5); WBC 13.9 k/uL (3.8-10.6)
--- NOTE | 2022-02-18 20:18 | XR ---
EXAMINATION TYPE: XR chest 2V DATE OF EXAM: 02/18/2022 8:05 PM COMPARISON: Chest radiographs from 08/19/2015 TECHNIQUE: XR chest 2V Frontal and lateral views of the chest. CLINICAL INDICATION:Female, 81 years old with history of syncope; FINDINGS: Lungs/Pleura: There is no evidence of pleural effusion, focal consolidation, or pneumothorax. Pulmonary vascularity: Unremarkable. Heart/mediastinum: Cardiomediastinal silhouette is prominent in size. Musculoskeletal: No acute osseous pathology. IMPRESSION: No acute cardiopulmonary disease/process.
[2022-02-18 20:24] LABS: ALT 24 U/L (4-34); AST 22 U/L (14-36); African American GFR (CKD) 57 (>60 ml/min/1.73 sqM); Albumin 3.9 g/dL (3.5-5.0); Alkaline Phosphatase 93 U/L (38-126); Anion Gap 8 mmol/L; Blood Urea Nitrogen 43 mg/dL (7-17); Calcium 9.5 mg/dL (8.4-10.2); Carbon Dioxide 23 mmol/L (22-30); Chloride 107 mmol/L (98-107); Glucose 155 mg/dL (74-99); Non-African American GFR(CKD) 49 (>60 ml/min/1.73 sqM); Potassium 4.2 mmol/L (3.5-5.1); Sodium 138 mmol/L (137-145); Total Bilirubin 0.4 mg/dL (0.2-1.3); Total Protein 5.9 g/dL (6.3-8.2)
[2022-02-18 20:35] LABS: Prothrombin Time 10.9 sec (9.0-12.0)
[2022-02-18 21:00] LABS: Appearance,Urine Turbid (Clear); Bacteria,Urine Occasional /hpf; Bilirubin,Urine Negative (Negative); Blood,Urine Negative (Negative); Color,Urine Light Yellow; Glucose,Urine (UA) Negative (Negative); Hyaline Casts,Urine 3 /lpf (0-2); Ketones,Urine Negative (Negative); Leukocyte Esterase,Urine Moderate (Negative); Mucus,Urine Rare /hpf; Nitrite,Urine Negative (Negative); PH, Urine 7.5 (5.0-8.0); Protein,Urine Negative (Negative); RBC,Urine 1 /hpf (0-5); Specific Gravity,Urine 1.009 (1.001-1.035); Squamous Epithelial Cell,Urine 6 /hpf (0-4); Urobilinogen,Urine <2.0 mg/dL (<2.0); WBC,Urine 18 /hpf (0-5)
--- NOTE | 2022-02-18 21:38 | CT ---
EXAMINATION TYPE: CT brain cspine wo con CT DLP: 1294.2 mGycm, Automated exposure control for dose reduction was used. DATE OF EXAM: 02/18/2022 9:08 PM COMPARISON: CT brain 08/19/2015 CLINICAL INDICATION:Female, 81 years old with history of head injury; pain after fall TECHNIQUE: Brain: Multiple axial CT images of the brain were obtained without IV contrast. Cspine: Axial CT images from the skull base to the inferior aspect of T2 we obtained without intraven ous contrast. Coronal and sagittal reformatted images were also reviewed. FINDINGS: Brain: Extra-axial spaces: No abnormal extra-axial fluid collections. Ventricular system: Dilatation in proportion to cerebral atrophy. Cerebral parenchyma: Cerebral atrophy. No acute intraparenchymal hemorrhage or mass effect. The leong -white junction is well differentiated. Scattered hypoattenuating areas are seen within the white mat ter. Cerebellum: Unremarkable. Mass effect: No evidence of midline shift. Intracranial vasculature: Atherosclerotic calcifications of the intracranial vessels. Soft tissues: Normal. Calvarium/osseous structures: No depressed skull fracture. Paranasal sinuses and mastoid air cells: Clear. Visualized orbits: Bilateral aphakia Cervical spine: Fracture: None. Osseous structures: Multilevel degenerative disc disease changes with endplate spurring and disc oste ophyte complex's. Vertebral alignment: Within normal limits. Spinal canal/Neural Foramina: No evidence of significant spinal canal narrowing. Facet joint uncovert ebral joint arthropathy scattered throughout the cervical spine with varying degrees of neural forami nal stenosis. Neck soft tissues: Prevertebral soft tissues are within normal limits. Other: The airway is patent. The lung apices are unremarkable IMPRESSION: 1. No acute intracranial process. 2. Nonspecific white matter changes, likely secondary to chronic small vessel ischemic disease. 3. No evidence of cervical spine fracture. 4. Mild multilevel degenerative disc disease.
[2022-02-18] MEDS ORDERED: SODIUM CHLORIDE 0.9% 1,000 ML IV STA (22:07)
[2022-02-18 22:13] LABS: Partial Thromboplastin Time 18.3 sec (22.0-30.0)
[2022-02-18] MEDS ORDERED: SODIUM CHLORIDE 0.9% 1,000 ML IV SCH (22:15)
--- NOTE | 2022-02-18 23:10 | CT ---
EXAMINATION TYPE: CT angio chest DATE OF EXAM: 02/18/2022 COMPARISON: None HISTORY: Elevated Ddimer CT DLP: 415.4 mGycm Automated exposure control for dose reduction was used. CONTRAST: Performed with IV Contrast, patient injected with 80 mL of Isovue 370. There are Three-D postprocessed images. There is some minimal subsegmental atelectasis in the lower lung mc. Heart size is normal. No per icardial effusion. There are no hilar masses. There is no mediastinal adenopathy. Thoracic aorta is i ntact. No aneurysm or dissection. There is no evidence of filling defect in the pulmonary arteries. The thoracic spine is intact. No co mpression fracture. IMPRESSION: No evidence of pulmonary embolism. Minimal subsegmental atelectasis.
[2022-02-19 01:00] VITALS: BP 164/79; PULSE 67
== END 2022-02-19 01:17 | disposition home or self-care (01) ==
LOC: EC 19:18
DX: R55 Syncope and collapse (principal); E86.0 Dehydration; I10 Essential (primary) hypertension; E07.9 Disorder of thyroid, unspecified; E78.5 Hyperlipidemia, unspecified; K21.9 Gastro-esophageal reflux disease without esophagitis; Z79.83 Long term (current) use of bisphosphonates; Z88.5 Allergy status to narcotic agent; Z91.048 Other nonmedicinal substance allergy status
CPT/HCPCS: 36415; 93005; 85379; 80053; 84443; 84484; 85025; 85610; 85730; 81001; 71046; 72125; 70450; 71275; 99285; 96365; 96361; Q9967

== ENCOUNTER → 2022-03-15 | Outpatient (CLI) | payer MEDICARE ==
[2022-03-15 10:20] LABS: Potassium 3.8 mmol/L (3.5-5.1)
[2022-03-15 12:25] LABS: Glucose 2 Hour 179 mg/dL
== END | disposition home or self-care (01) ==
LOC: LABWHC1 08:36
PROVIDERS: ATTEND Family Medicine
DX: I10 Essential (primary) hypertension (principal); Z79.899 Other long term (current) drug therapy; N39.0 Urinary tract infection, site not specified
CPT/HCPCS: 36415; 80051; 82565; 82947; 82950; 83036; 84520; 87077; 87086; 87186

== ENCOUNTER 2022-08-29 08:46 | Day surgery (SDC) | payer MEDICARE ==
[2022-08-27 12:57] VITALS: BMI 24.5
[2022-08-29] MEDS: LACTATED RINGERS 1,000 ML IV SCH ×2 (09:17→09:58)
[2022-08-29 09:25] VITALS: TEMP 98.4
[2022-08-29] MEDS ORDERED: ONDANSETRON 4 MG/2 ML VIAL ONE (09:46)
[2022-08-29] MEDS ORDERED: ONDANSETRON 4 MG/2 ML VIAL IVP ONE (09:47)
[2022-08-29] MEDS ORDERED: LIDOCAINE 2% INJ 20 MG/ML (2 ML VIAL) ONE (10:02)
[2022-08-29] MEDS ORDERED: PROPOFOL 10 MG/ML 20 ML VIAL IV ONE (10:02)
--- NOTE | 2022-08-29 10:03 | P.GSHP ---
History of Present Illness H&P Date: 08/29/22 Chief Complaint: GERD, constipation Is a 2-year-old female who presents safer EGD and colonoscopy patient's issues with GERD and constipation. 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 History of Any Multi-Drug Resistant Organisms: None Reported Past Surgical History: Appendectomy, Bladder Surgery, Breast Surgery, Hysterectomy, Orthopedic Surgery, Tonsillectomy Additional Past Surgical History / Comment(s): Bladder suspension X4, benign excisional biopsy left breast, lip surgery, shoulder surgery. Past Anesthesia/Blood Transfusion Reactions: No Reported Reaction, Postoperative Nausea & Vomiting (PONV) Past Psychological History: No Psychological Hx Reported Smoking Status: Never smoker Past Alcohol Use History: Occasional Past Drug Use History: None Reported - Past Family History Brother(s) Family Medical History: Cancer Additional Family Medical History / Comment(s): Bladder cancer. Father Family Medical History: Deep Vein Thrombosis (DVT), Myocardial Infarction ([place]) Additional Family Medical History / Comment(s): . Mother Family Medical History: CVA/TIA Sister(s) Family Medical History: Cancer, CVA/TIA Additional Family Medical History / Comment(s): Uterine cancer. Medications and Allergies Home Medications Medication Instructions Recorded Confirmed Type Amitriptyline HCl [Elavil] 10 mg PO HS 08/20/15 08/27/22 History Ascorbic Acid [Vitamin C] 1,000 mg PO DAILY 08/20/15 08/27/22 History Aspirin [Adult Low Dose Aspirin EC] 81 mg PO HS 08/20/15 08/27/22 History Glucosamine/Chondr Kay A Sod [Osteo 1 tab PO DAILY 08/20/15 08/27/22 History Bi-Flex Caplet] Magnesium Hydroxide [Milk of 2,400 mg PO DAILY PRN 08/20/15 08/27/22 History Magnesia Concentrate] Rosuvastatin [Crestor] 20 mg PO HS 08/20/15 08/27/22 History amLODIPine [Norvasc] 10 mg PO HS 08/20/15 08/27/22 History Calcium Carbonate [Calcium] 600 mg PO DAILY 11/02/20 08/27/22 History Ibandronate Sodium [Boniva] 150 mg PO Q30D 11/02/20 08/27/22 History Multivit-Min/Iron/Folic/Lutein 1 tab PO DAILY 11/02/20 08/27/22 History [Centrum Silver Women Tablet] Potassium Chloride [Klor-Con 20] 20 meq PO DAILY 11/02/20 08/27/22 History lisinopriL 40 mg PO QAM 11/02/20 08/27/22 History Cholecalciferol [Vitamin D3 (25 25 mcg PO DAILY 02/18/22 08/27/22 History Mcg = 1000 Iu)] Cranberry Fruit Extract [Cranberry] 500 mg PO DAILY 02/18/22 08/27/22 History Levothyroxine Sodium [Synthroid] 112 mcg PO QAM 02/18/22 08/27/22 History Omeprazole Magnesium [PriLOSEC OTC] 20 mg PO Q48H 02/18/22 08/27/22 History Triamcinolone 0.1% Cream [Kenalog 1 applic TOPICAL BID PRN 02/18/22 08/27/22 History 0.1% Cream] Clotrimazole/Betameth Cream 1 applic TOPICAL BID PRN 06/13/22 08/27/22 History [Lotrisone] [place]-3/Dha/Epa/Fish Oil [Fish Oil 1 cap PO DAILY 06/13/22 08/27/22 History 1,000 mg Softgel] Vit C/E/Zn/Coppr/Lutein/Zeaxan 1 cap PO BID 06/13/22 08/27/22 History [Preservision Areds 2 Softgel] Spironolactone [Aldactone] 25 mg PO DAILY 90 Days #90 tab 06/17/22 08/27/22 Rx carvediloL [Coreg*] 25 mg PO BID-W/MEALS 90 Days #180 06/17/22 08/27/22 Rx tab Allergies Allergy/AdvReac Type Severity Reaction Status Date / Time adhesive Allergy Rash/Hives Verified 08/27/22 12:29 codeine Allergy Rash/Hives Verified 08/27/22 12:29 Surgical - Exam Vital Signs Temp Pulse Resp BP Pulse Ox 98.4 F 78 18 190/81 98 08/29/22 09:11 08/29/22 09:11 08/29/22 09:11 08/29/22 09:11 08/29/22 09:11 - General well developed, well nourished, no distress - Eyes PERRL - ENT normal pinna - Neck no masses - Respiratory normal expansion - Cardiovascular Rhythm: regular - Abdomen Abdomen: soft, non tender Assessment and Plan Assessment: GERD, constipation. We'll perform EGD and colonoscopy.
--- NOTE | 2022-08-29 10:18 | P.OP ---
Date of Procedure: 08/29/22 Preoperative Diagnosis: GERD Constipation Postoperative Diagnosis: Antral gastritis Moderate size hiatal hernia Esophagitis Poor colon prep with large amount of stool in rectal vault Procedure(s) Performed: EGD Anesthesia: MAC Surgeon: Jason Vizcarra Pathology: other (Antrum, esophagus) Condition: stable Disposition: PACU Description of Procedure: The patient's placed on the endoscopy table in the lateral position. She received IV sedation. The gastroscope placed oropharynx passed in the esophagus into the stomach. Scope was placed through the pylorus. The first and second portion of the duodenum appeared normal. Scope was then brought back the antrum this. Mildly inflamed. A biopsies performed. The scope was unretroflexed and the patient was found to have a moderate size hiatal hernia. The remaining stomach was visualized and this appeared normal. The GE junction was at 37 cm p er the distal esophagus appeared inflamed and a biopsies performed. The proximal esophagus appeared normal. Scope was brought patient. Next digital rectal exam is performed. This revealed a large amount hemorrhoids. There was a large amount of solid stool rectal wall. At this point the colonoscopy was canceled. Patient will have to be reprepped for colonoscopy.
[2022-08-29 10:23] VITALS: RESP 16
[2022-08-29 10:56] VITALS: BP 137/68; PULSE 71
== END 2022-08-29 11:33 | disposition home or self-care (01) ==
LOC: ORWHC2ENDO 08:46
PROVIDERS: ATTEND Surgery
DX: K29.50 Unspecified chronic gastritis without bleeding (principal); E03.9 Hypothyroidism, unspecified; E78.5 Hyperlipidemia, unspecified; I10 Essential (primary) hypertension; K21.00 Gastro-esophageal reflux disease with esophagitis, without bleeding; K44.9 Diaphragmatic hernia without obstruction or gangrene; K59.00 Constipation, unspecified; M19.90 Unspecified osteoarthritis, unspecified site; Z79.82 Long term (current) use of aspirin; Z82.49 Family history of ischemic heart disease and other diseases of the circulatory system; Z87.19 Personal history of other diseases of the digestive system; Z90.49 Acquired absence of other specified parts of digestive tract
CPT/HCPCS: 88305; 43239; J2405; J2704; J2001

== ENCOUNTER → 2022-10-09 | Outpatient (CLI) | payer MEDICARE ==
--- NOTE | 2022-10-09 11:40 | MM ---
Reason for Exam: Screening (asymptomatic). Last screening mammogram was performed 12 month(s) ago. Patient History: Menarche at age 10. First Full-Term at age 18. Hysterectomy at age 37. Postmenopausal. Other cancer. Patient used Hormonal Contraceptives for 8 years. Benign Excisional Biopsy on the left side. 11/08/2020, Benign Core Biopsy on the left side. Risk Values: Jackie 5 year model risk: 1.8%. NCI Lifetime model risk: 2.2%. Prior Study Comparison: 10/20/2020 Bilateral Diagnostic Mammogram, [facility]. 11/08/2020 Left Diagnostic Mammogram, [facility]. 10/22/2021 Bilateral Diagnostic Mammogram, [facility]. Tissue Density: The breast tissue is heterogeneously dense. This may lower the sensitivity of mammography. Findings: Analyzed By CAD. Left breast biopsy clip. There is no suspicious group of microcalcifications or new suspicious mass in either breast. Overall Assessment: Negative, BI-RAD 1 Management: Screening Mammogram of both breasts in 1 year. A clinical breast exam by your physician is recommended on an annual basis and results should be correlated with mammographic findings. [facility] will attempt to contact patient to return for supplemental views and ultrasound if indicated. Electronically signed and approved by: Erwin Malik DO
== END | disposition home or self-care (01) ==
LOC: RADMAMWWP 11:05
PROVIDERS: ATTEND Surgery
DX: Z12.31 Encounter for screening mammogram for malignant neoplasm of breast (principal); Z78.0 Asymptomatic menopausal state; Z98.890 Other specified postprocedural states
CPT/HCPCS: 77063; 77067

== ENCOUNTER → 2022-12-20 | Outpatient (CLI) | payer MEDICARE ==
[2022-12-20 15:19] LABS: Basophils # (A) 0.04 X 10*3/uL (0.00-0.10); Basophils % (A) 0.5 %; Eosinophils # (A) 0.23 X 10*3/uL (0.04-0.35); Eosinophils % (A) 2.9 %; HCT 41.6 % (37.2-46.3); HGB 13.2 g/dL (12.0-15.0); Immature Grans, Automated 0.3 %; Lymphocytes # (A) 2.06 X 10*3/uL (0.90-5.00); Lymphocytes % (A) 25.8 %; MCH 29.7 pg (27.0-32.0); MCHC 31.7 g/dL (32.0-37.0); MCV 93.7 fL (80.0-97.0); Mean Platelet Volume 10.7 fL (9.5-12.2); Monocytes # (A) 0.69 X 10*3/uL (0.20-1.00); Monocytes % (A) 8.6 %; NRBC Per 100 WBC 0 /100 WBCS (0.0-0.0); Neutrophils # (A) 4.96 X 10*3/uL (1.80-7.70); Neutrophils % (A) 61.9 %; Platelet Count 170 X 10*3/uL (140-440); RBC 4.44 X 10*6/uL (4.10-5.20); RDW 13.7 % (11.5-14.5)
== END | disposition home or self-care (01) ==
LOC: LABPAT 10:36
PROVIDERS: ATTEND Surgery
DX: Z01.812 Encounter for preprocedural laboratory examination (principal); I51.7 Cardiomegaly; R94.31 Abnormal electrocardiogram [ECG] [EKG]
CPT/HCPCS: 85025; 93005

== ENCOUNTER 2022-12-24 08:44 | Day surgery (SDC) | payer MEDICARE ==
[~2022-12-24 08:44] MED LIST: ACETAMINOPHEN TAB 500 MG TAB PO PRN; DEXAMETHASONE SOD PHOSPHATE 4 MG/ML 1 ML VIAL IV ONE; HEPARIN SODIUM,PORCINE/PF 5,000 UNIT/0.5 ML SYRINGE SQ PRN; HYDROmorphone 0.5 MG/0.5 ML SYRINGE IVP PRN; LIDOCAINE 1% (10MG/ML) FOR IV START INTRADERMA PRN; MIDAZOLAM 2 MG/2 ML VIAL IV PRN; ONDANSETRON 4 MG/2 ML VIAL IVP ONE
[2022-12-24] MEDS: LACTATED RINGERS 1,000 ML IV SCH (09:21)
[2022-12-24] MEDS ORDERED: MIDAZOLAM 2 MG/2 ML VIAL IVP ONE (10:17)
[2022-12-24] MEDS ORDERED: SUCCINYLCHOLINE CHLORIDE 200 MG/10 ML VIAL IV ONE (10:26)
[2022-12-24] MEDS ORDERED: fentaNYL (PF) 50 MCG/ML 2 ML AMP ONE (10:26)
[2022-12-24] MEDS ORDERED: ROCURONIUM 10 MG/ML (5 ML VIAL) IV ONE (10:26)
[2022-12-24] MEDS ORDERED: LIDOCAINE 2% INJ 20 MG/ML (2 ML VIAL) ONE (10:26)
[2022-12-24] MEDS ORDERED: hydrALAZINE HCL 20 MG/ML 1 ML VIAL ONE (10:26)
[2022-12-24] MEDS ORDERED: GLYCOPYRROLATE 0.2 MG/ML 2 ML VIAL ONE (10:26)
[2022-12-24] MEDS ORDERED: PROPOFOL 10 MG/ML 20 ML VIAL IV ONE (10:26)
[2022-12-24] MEDS ORDERED: NEOSTIGMINE 1 MG/ML 10 ML VIAL ONE (10:26)
--- NOTE | 2022-12-24 10:27 | P.GSHP ---
History of Present Illness H&P Date: 12/24/22 Chief Complaint: GERD, hiatal hernia This is a 2-year-old female presents today for laparoscopic dislocation. Patient is issues with GERD and dysphagia related to hiatal hernia. Past Medical History Past Medical History: Cancer, Eye Disorder, GERD/Reflux, Hearing Disorder / Deafness, Hyperlipidemia, Hypertension, Osteoarthritis (OA), Thyroid Disorder Additional Past Medical History / Comment(s): Hiatal hernia, lately running higher blood pressure, oxygen at 2L/NC hs/pt states not for any specific reason that doctor said that "it would make me feel better", hypothyroid, squamous cell cancer lower lip with surgery, basal cell cancer L ankle/removed, frequent urination/incontinence at times, UTIs, bilateral eye macular degeneration, tinnitis bilaterally, vertigo at times, constipation at times History of Any Multi-Drug Resistant Organisms: None Reported Past Surgical History: Appendectomy, Bladder Surgery, Breast Surgery, Hysterectomy, Orthopedic Surgery, Tonsillectomy Additional Past Surgical History / Comment(s): Bladder suspensions x4, benign biopsy left breast x2, lower lip surgery, skin cancer removed L ankle, shoulder surgery/cannot recall laterality/spurs removed, L wrist carpal tunnel release, EGD, recent colonoscopy unsuccessful d/t poor prep, previous colonoscopy Past Anesthesia/Blood Transfusion Reactions: Postoperative Nausea & Vomiting (PONV) Additional Past Anesthesia/Blood Transfusion Reaction / Comment(s): Severe PONV, pt has never had a blood transfusion. Past Psychological History: No Psychological Hx Reported Additional Psychological History / Comment(s): Pt resides with her spouse of 64 yrs. She occasionally uses a cane. Smoking Status: Never smoker Past Alcohol Use History: Occasional Past Drug Use History: None Reported - Past Family History Brother(s) Family Medical History: Cancer Additional Family Medical History / Comment(s): Bladder cancer. Father Family Medical History: Deep Vein Thrombosis (DVT), Hypertension, Myocardial Infarction ([place]) Additional Family Medical History / Comment(s): . Mother Family Medical History: CVA/TIA, Hypertension Sister(s) Family Medical History: Cancer, CVA/TIA Additional Family Medical History / Comment(s): Uterine cancer. Medications and Allergies Home Medications Medication Instructions Recorded Confirmed Type Amitriptyline HCl [Elavil] 10 mg PO HS 08/20/15 12/24/22 History Ascorbic Acid [Vitamin C] 1,000 mg PO QAM 08/20/15 12/24/22 History Aspirin [Adult Low Dose Aspirin EC] 81 mg PO HS 08/20/15 12/24/22 History Glucosamine/Chondr Kay A Sod [Osteo 1 tab PO QAM 08/20/15 12/24/22 History Bi-Flex Caplet] Magnesium Hydroxide [Milk of 2,400 mg PO HS PRN 08/20/15 12/24/22 History Magnesia Concentrate] Rosuvastatin [Crestor] 20 mg PO HS 08/20/15 12/24/22 History amLODIPine [Norvasc] 5 mg PO HS 08/20/15 12/24/22 History Calcium Carbonate [Calcium] 600 mg PO QAM 11/02/20 12/24/22 History Ibandronate Sodium [Boniva] 150 mg PO Q30D 11/02/20 12/24/22 History Multivit-Min/Iron/Folic/Lutein 1 tab PO QAM 11/02/20 12/24/22 History [Centrum Silver Women Tablet] lisinopriL 40 mg PO QAM 11/02/20 12/24/22 History Cholecalciferol [Vitamin D3 (25 25 mcg PO QAM 02/18/22 12/24/22 History Mcg = 1000 Iu)] Cranberry Fruit Extract [Cranberry] 500 mg PO QAM 02/18/22 12/24/22 History Levothyroxine Sodium [Synthroid] 112 mcg PO QAM 02/18/22 12/24/22 History Omeprazole Magnesium [PriLOSEC OTC] 20 mg PO Q48H 02/18/22 12/24/22 History [place]-3/Dha/Epa/Fish Oil [Fish Oil 1 cap PO DAILY 06/13/22 12/24/22 History 1,000 mg Softgel] Vit C/E/Zn/Coppr/Lutein/Zeaxan 1 each PO QAM 10/17/22 12/24/22 History [Preservision Areds 2 Softgel] hydroCHLOROthiazide 25 mg PO QAM 10/17/22 12/24/22 History Oxybutynin Chloride [Oxybutynin 10 mg PO QAM 12/17/22 12/24/22 History Chloride ER] carvediloL [Coreg*] 3.123 mg PO BID-W/MEALS 12/17/22 12/24/22 History Acetaminophen Tab [Tylenol Tab] 500 mg PO Q6H PRN 12/24/22 12/24/22 History Allergies Allergy/AdvReac Type Severity Reaction Status Date / Time adhesive Allergy Rash/Hives Verified 12/24/22 09:13 codeine Allergy Nausea & Verified 12/24/22 09:13 Vomiting Surgical - Exam Vital Signs Temp Pulse Resp BP Pulse Ox 98.8 F 63 16 207/84 97 12/24/22 09:19 12/24/22 09:19 12/24/22 09:19 12/24/22 09:19 12/24/22 09:19 - General well developed, well nourished, no distress - Eyes PERRL - ENT normal pinna - Neck no masses - Respiratory normal expansion - Cardiovascular Rhythm: regular - Abdomen Abdomen: soft, non tender Results - Labs 12/24/22 09:50 Diabetes panel 12/24/22 Range/Units 09:50 Potassium 4.1 (3.5-5.1) mmol/L Pituitary panel 12/24/22 Range/Units 09:50 Potassium 4.1 (3.5-5.1) mmol/L Adrenal panel 12/24/22 Range/Units 09:50 Potassium 4.1 (3.5-5.1) mmol/L Assessment and Plan Assessment: GERD Dysphagia We'll perform laparoscopic Macie fundoplication
[2022-12-24] MEDS ORDERED: BUPIVACAIN-EPI 0.25%-1:200,000 30 ML VIAL SQ ONE (11:02)
--- NOTE | 2022-12-24 11:30 | P.OP ---
Date of Procedure: 12/24/22 Preoperative Diagnosis: GERD Postoperative Diagnosis: GERD Procedure(s) Performed: Laparoscopic Macie fundal plication Anesthesia: RICK Surgeon: Jason Vizcarra Estimated Blood Loss (ml): 5 Pathology: none sent Condition: stable Disposition: PACU Description of Procedure: The patient was placed on the operating table in the supine position. The patient received general anesthesia. And was placed in dorsal lithotomy position. The patient was prepped and draped in the usual sterile fashion. The skin incision sites were anesthetized with 1% local Xylocaine. The skin was incised in the left periumbilical area and then using a blade less 5 mm trocar under direct visualization panel cavity was entered. After adequate insufflation the laparoscope was then placed into the peritoneal cavity. Next a 5 mm trochars placed in the right epigastric position. Another 5 millimeter trocar the right lateral position. Another 5 millimeter trocar in the left lateral position a 5 mm trocar is placed in the left epigastric position. And then the initial 5 mm trocar was exchanged for a 10 mm trocar. The left lateral lobe liver was retracted. The hernia was seen. The crural defect was then dissected using the Harmonic scissors device. A 360 crural dissection was p erformed the esophagus stomach was reduced back into the peritoneal Cavity. The crural defect was then closed using 2-0 Ethibond suture. Next the fundus of the stomach was mobilized using the [place] scissors device. and then a 58-Belgian bougie dilator was placed oropharynx passed into the esophagus and stomach the fundal plication wrap was then performed by grasping the fundus posteriorly and bringing it around the esophagus and stomach fundoplication was then performed using 2-0 Ethibond suture. Care was taken that the fundal location rested over top of the intra-abdominal esophagus. There was no injury seen to the stomach or esophagus. The dilator was then withdrawn. The abdomen was irrigated there is no bleeding seen. The trochars were then withdrawn and then skin incision sites were closed using 3-0 Monocryl suture Steri-Strips are applied. Patient thought procedure well and sent to recovery room in stable condition.
[2022-12-24] MEDS ORDERED: LACTATED RINGERS 1,000 ML IV ONE (12:45)
[2022-12-24] MEDS: HYDROmorphone 1 MG/ML 1 ML SYRINGE IVP PRN ×2 (16:05→20:00)
[2022-12-24] MEDS: carvediloL 3.125 MG TAB PO SCH (18:18)
[2022-12-24] MEDS: D5-0.45% NACL WITH KCL 20MEQ/L 1,000 ML IV SCH (18:19)
[2022-12-24] MEDS ORDERED: DEXAMETHASONE SOD PHOSPHATE 4 MG/ML 1 ML VIAL IVP PRN (19:15)
[2022-12-24] MEDS: DEXAMETHASONE SOD PHOSPHATE 4 MG/ML 1 ML VIAL IVP SCH (19:59)
[2022-12-24] MEDS ORDERED: amLODIPine 5 MG TAB PO SCH (21:00)
[2022-12-24] MEDS ORDERED: AMITRIPTYLINE HCL 10 MG TAB PO SCH (21:00)
[2022-12-24] MEDS ORDERED: ATORVASTATIN 40 MG TAB PO SCH (21:00)
[2022-12-24] MEDS ORDERED: ASPIRIN 81 MG PO SCH (21:00)
[2022-12-24] MEDS ORDERED: hydrALAZINE HCL 20 MG/ML 1 ML VIAL IVP PRN (23:52)
--- NOTE | 2022-12-25 00:40 | PN ---
PROGRESS NOTE HISTORY OF PRESENT ILLNESS: This is an 82-year-old white female status post Andrew procedure. States she cannot really swallow. Blood pressure has been high 170s to 190s, O2 saturation 95 to 99 on room air, pulse 78, temperature 97. Says she cannot swallow. PHYSICAL EXAMINATION: CARDIOVASCULAR: S1, S2. LUNGS: Clear. PSYCH: She appears anxious, nervous. Home medications will be ordered. Blood pressure may have to be controlled. Discussed with Dr. Vizcarra for possible dysphagia, possibly due to intubation has difficulty with her swallowing. She wears oxygen at home at nighttime, to continue on oxygen at nighttime, which she normally wears. Prognosis is guarded. Continue home medications. Please see further orders. MMODL / IJN: [id number] /
[2022-12-25] MEDS: D5-0.45% NACL WITH KCL 20MEQ/L 1,000 ML IV SCH ×2 (01:19→09:50)
[2022-12-25] MEDS: DEXAMETHASONE SOD PHOSPHATE 4 MG/ML 1 ML VIAL IVP SCH ×3 (01:23→13:30)
[2022-12-25] MEDS ORDERED: LEVOTHYROXINE 112 MCG TAB PO SCH (06:30)
[2022-12-25 07:30] VITALS: RESP 18
[2022-12-25] MEDS: IPRATROPIUM-ALBUTEROL 3 ML NEB INHALATION SCH ×3 (07:46→15:22)
[2022-12-25] MEDS ORDERED: BUDESONIDE 0.5 MG/2 ML NEBU INHALATION SCH (08:00)
[2022-12-25 08:47] LABS: Basophils # (A) 0.01 X 10*3/uL (0.00-0.10); Basophils % (A) 0.1 %; Eosinophils # (A) 0 X 10*3/uL (0.04-0.35); Eosinophils % (A) 0 %; HCT 43.8 % (37.2-46.3); HGB 13.8 g/dL (12.0-15.0); Immature Grans, Automated 0.2 %; Lymphocytes # (A) 1.02 X 10*3/uL (0.90-5.00); Lymphocytes % (A) 11.5 %; MCH 29.2 pg (27.0-32.0); MCHC 31.5 g/dL (32.0-37.0); MCV 92.8 fL (80.0-97.0); Mean Platelet Volume 11.1 fL (9.5-12.2); Monocytes # (A) 0.11 X 10*3/uL (0.20-1.00); Monocytes % (A) 1.2 %; NRBC Per 100 WBC 0 /100 WBCS (0.0-0.0); Neutrophils # (A) 7.69 X 10*3/uL (1.80-7.70); Platelet Count 162 X 10*3/uL (140-440); RBC 4.72 X 10*6/uL (4.10-5.20); RDW 13.7 % (11.5-14.5); WBC 8.85 X 10*3/uL (4.50-10.00)
[2022-12-25] MEDS ORDERED: MULTIVITAMINS, THERA 1 EACH TAB PO SCH (09:00)
[2022-12-25] MEDS ORDERED: OXYBUTYNIN 10 MG TAB.ER.24 PO SCH (09:00)
[2022-12-25] MEDS ORDERED: lisinopriL 20 MG TAB PO SCH (09:00)
[2022-12-25 09:06] LABS: African American GFR (CKD) 92.9 (60.0-200.0); Albumin 4.1 g/dL (3.8-4.9); Albumin/Globulin Ratio 2.41 (1.60-3.17); Anion Gap 9.5 mmol/L (10.00-18.00); BUN/Creat Ratio 23.29 Ratio (12.00-20.00); Blood Urea Nitrogen 16.3 mg/dL (9.0-27.0); Calcium 9.3 mg/dL (8.7-10.3); Carbon Dioxide 23.5 mmol/L (20.0-27.5); Globulin 1.7 g/dL (1.6-3.3); Non-African American GFR(CKD) 80.1 (60.0-200.0); Potassium 4.1 mmol/L (3.5-5.5); Total Bilirubin 0.5 mg/dL (0.30-1.20); Total Protein 5.8 g/dL (6.2-8.2)
[2022-12-25] MEDS: carvediloL 3.125 MG TAB PO SCH (09:53)
[2022-12-25] MEDS: LACTATED RINGERS 1,000 ML IV SCH (09:54)
[2022-12-25] MEDS ORDERED: ACETAMINOPHEN TAB 325 MG TAB PO PRN (11:31)
[2022-12-25 13:20] VITALS: BMI 27.5
[2022-12-25 13:26] VITALS: BP 168/77; PULSE 76; TEMP 98
[2022-12-25] MEDS ORDERED: HYDROcodone/APAP 5-325MG 1 EACH TAB PO PRN (13:32)
--- NOTE | 2022-12-25 13:41 | P.DS ---
Providers Expected date of discharge: 12/25/22 Attending physician: Jason Vizcarra Consults: 12/24/22 11:31 Consult Physician Routine Consulting Provider: Finn Saul Consult Reason/Comments: Medical management Do you want consulting provider notified?: Yes Primary care physician: Finn Saul Hospital Course: Discharge diagnosis 1. GERD status post laparoscopic Dianna fundoplication 2. Hypertension with elevated blood pressures Hospital course This is a 82-year-old female with history of GERD she status post laparoscopic dianna fundoplication. Patient had reported some difficulty with swallowing yesterday after surgery. She did receive dexamethasone. Her swallowing has improved. She is tolerating the clear liquid diet without difficulty. She denies any abdominal pain. Denies any nausea or vomiting. She did have elevated blood pressures. Blood pressures started to show improvement. It'll likely continue to improve when the IV fluids are discontinued and she does resume her hydrochlorothiazide. Medicine service also will be notified about discharge and for any further recommendations. Patient is stable for discharge. Please refer to chart for any further details. Physician Fire Support Man note has been reviewed by physician. Signing provider agrees with the documented findings, assessment, and plan of care. Patient Condition at Discharge: Stable Plan - Discharge Summary Discharge Rx Participant: No New Discharge Prescriptions: New HYDROcodone/APAP 5-325MG [[place] 5-325] 1 tab PO Q6HR PRN 2 Days #5 tab PRN Reason: Pain Continue Aspirin [Adult Low Dose Aspirin EC] 81 mg PO HS amLODIPine [Norvasc] 5 mg PO HS Rosuvastatin [Crestor] 20 mg PO HS Amitriptyline HCl [Elavil] 10 mg PO HS Magnesium Hydroxide [Milk of Magnesia Concentrate] 2,400 mg PO HS PRN PRN Reason: Constipation Glucosamine/Chondr Kay A Sod [Osteo Bi-Flex Caplet] 1 tab PO QAM Ascorbic Acid [Vitamin C] 1,000 mg PO QAM lisinopriL 40 mg PO QAM Multivit-Min/Iron/Folic/Lutein [Centrum Silver Women Tablet] 1 tab PO QAM Calcium Carbonate [Calcium] 600 mg PO QAM Ibandronate Sodium [Boniva] 150 mg PO Q30D Omeprazole Magnesium [PriLOSEC OTC] 20 mg PO Q48H Cranberry Fruit Extract [Cranberry] 500 mg PO QAM Cholecalciferol [Vitamin D3 (25 Mcg = 1000 Iu)] 25 mcg PO QAM Levothyroxine Sodium [Synthroid] 112 mcg PO QAM [place]-3/Dha/Epa/Fish Oil [Fish Oil 1,000 mg Softgel] 1 cap PO DAILY hydroCHLOROthiazide 25 mg PO QAM Vit C/E/Zn/Coppr/Lutein/Zeaxan [Preservision Areds 2 Softgel] 1 each PO QAM carvediloL [Coreg*] 3.123 mg PO BID-W/MEALS Oxybutynin Chloride [Oxybutynin Chloride ER] 10 mg PO QAM Acetaminophen Tab [Tylenol] 500 mg PO Q6H PRN PRN Reason: Pain Discharge Medication List Amitriptyline HCl [Elavil] 10 mg PO HS 08/20/15 [History] Ascorbic Acid [Vitamin C] 1,000 mg PO QAM 08/20/15 [History] Aspirin [Adult Low Dose Aspirin EC] 81 mg PO HS 08/20/15 [History] Glucosamine/Chondr Kay A Sod [Osteo Bi-Flex Caplet] 1 tab PO QAM 08/20/15 [History] Magnesium Hydroxide [Milk of Magnesia Concentrate] 2,400 mg PO HS PRN 08/20/15 [History] Rosuvastatin [Crestor] 20 mg PO HS 08/20/15 [History] amLODIPine [Norvasc] 5 mg PO HS 08/20/15 [History] Calcium Carbonate [Calcium] 600 mg PO QAM 11/02/20 [History] Ibandronate Sodium [Boniva] 150 mg PO Q30D 11/02/20 [History] Multivit-Min/Iron/Folic/Lutein [Centrum Silver Women Tablet] 1 tab PO QAM 11/02/20 [History] lisinopriL 40 mg PO QAM 11/02/20 [History] Cholecalciferol [Vitamin D3 (25 Mcg = 1000 Iu)] 25 mcg PO QAM 02/18/22 [History] Cranberry Fruit Extract [Cranberry] 500 mg PO QAM 02/18/22 [History] Levothyroxine Sodium [Synthroid] 112 mcg PO QAM 02/18/22 [History] Omeprazole Magnesium [PriLOSEC OTC] 20 mg PO Q48H 02/18/22 [History] [place]-3/Dha/Epa/Fish Oil [Fish Oil 1,000 mg Softgel] 1 cap PO DAILY 06/13/22 [History] Vit C/E/Zn/Coppr/Lutein/Zeaxan [Preservision Areds 2 Softgel] 1 each PO QAM 10/17/22 [History] hydroCHLOROthiazide 25 mg PO QAM 10/17/22 [History] Oxybutynin Chloride [Oxybutynin Chloride ER] 10 mg PO QAM 12/17/22 [History] carvediloL [Coreg*] 3.123 mg PO BID-W/MEALS 12/17/22 [History] Acetaminophen Tab [Tylenol] 500 mg PO Q6H PRN 12/24/22 [History] HYDROcodone/APAP 5-325MG [[place] 5-325] 1 tab PO Q6HR PRN 2 Days #5 tab 12/25/22 [Rx] Follow up Appointment(s)/Referral(s): Jason Vizcarra MD [STAFF PHYSICIAN] - 1 Week Finn Saul MD [Primary Care Provider] - 1 Week Activity/Diet/Wound Care/Special Instructions: No driving while taking [place] No lifting over 10 pounds Shower daily. No soaking or tub baths for 2 weeks Very light activity until you are reevaluated at your follow up appointment with your surgeon No straws or carbonated beverages Continue a full liquid diet at discharge Discharge Disposition: HOME SELF-CARE
== END 2022-12-25 15:51 | disposition home or self-care (01) ==
LOC: OR 08:44 → 5NMEDONC 11:30 → OR 12-25 15:51
PROVIDERS: ATTEND Surgery
DX: K21.9 Gastro-esophageal reflux disease without esophagitis (principal); K44.9 Diaphragmatic hernia without obstruction or gangrene; I10 Essential (primary) hypertension; E78.5 Hyperlipidemia, unspecified; M19.90 Unspecified osteoarthritis, unspecified site; Z90.49 Acquired absence of other specified parts of digestive tract; Z90.710 Acquired absence of both cervix and uterus; Z90.89 Acquired absence of other organs; Z98.890 Other specified postprocedural states; Z86.59 Personal history of other mental and behavioral disorders; Z80.52 Family history of malignant neoplasm of bladder; Z82.49 Family history of ischemic heart disease and other diseases of the circulatory system; Z82.3 Family history of stroke; Z79.82 Long term (current) use of aspirin; Z79.899 Other long term (current) drug therapy
CPT/HCPCS: 94640 ×2; 80053; 84132; 85025; 43280; J2250; J1100 ×2; J0690; J2405; J1170 ×2; J1644

== ENCOUNTER → 2023-02-12 | Outpatient (CLI) | payer MEDICARE ==
--- NOTE | 2023-02-12 12:00 | FL ---
EXAMINATION TYPE: FL barium swallow DATE OF EXAM: 02/12/2023 11:08 AM COMPARISON: No direct comparisons CLINICAL INDICATION:Female, 82 years old with history of R13.10 Dysphagia; PHH, TECHNIQUE: The procedure was explained and patient history elicited. All patient questions were ans wered prior to start of procedure. Multiple spot fluoroscopic images of the esophagus were obtained a fter the oral ingestion of liquid barium as the contrast agent. Fluoroscopic time: 40 seconds Fluoroscopic images: 187 Total DAP: 1382.38 FINDINGS: The esophagus demonstrates primary and secondary peristalsis with multiple tertiary contractions invo lving the mid and distal esophagus. Contrast easily passes from the esophagus into the stomach. Post surgical changes from hernia repair. No evidence for leak. The esophageal mucosa is smooth without ev idence of focal stricture, ulceration, or abnormal outpouching. No gastroesophageal reflux disease w as identified. No recurrent hiatal hernia. Vallecular and piriform retention of thin barium contrast. IMPRESSION: 1. Postsurgical changes from hernia repair without evidence for recurrent hernia. No contrast leak id entified. 2. Moderate esophageal dysmotility with multiple tertiary contractions.
== END | disposition home or self-care (01) ==
LOC: RADUSWWP 10:02
PROVIDERS: ATTEND Surgery
DX: K22.4 Dyskinesia of esophagus (principal); R13.10 Dysphagia, unspecified
CPT/HCPCS: 74220

== ENCOUNTER → 2023-02-27 | Outpatient (CLI) | payer MEDICARE ==
--- NOTE | 2023-02-28 07:25 | FL ---
Modified barium swallow. HISTORY: Dysphagia. Modified barium swallow was performed with the department of speech pathology. The patient was prese nted with various consistencies of barium. There is no evidence for aspiration or penetration. Full report is to follow from the department of speech pathology. Impression: Normal study.
== END | disposition home or self-care (01) ==
LOC: RADFLMAIN 11:11
PROVIDERS: ATTEND Family Medicine
DX: R13.10 Dysphagia, unspecified (principal)
CPT/HCPCS: 74230

== ENCOUNTER 2023-05-07 10:48 | Day surgery (SDC) | payer MEDICARE ==
[2023-05-05 11:53] VITALS: BMI 23.2
[2023-05-07] MEDS ORDERED: LACTATED RINGERS 1,000 ML IV SCH (11:18)
[2023-05-07] MEDS ORDERED: LIDOCAINE 1% (10MG/ML) FOR IV START INTRADERMA PRN (11:18)
[2023-05-07 11:33] VITALS: TEMP 97.6
[2023-05-07] MEDS ORDERED: ONDANSETRON 4 MG/2 ML VIAL IVP ONE (11:47)
[2023-05-07] MEDS ORDERED: ONDANSETRON 4 MG/2 ML VIAL ONE (11:47)
[2023-05-07] MEDS ORDERED: PROPOFOL 10 MG/ML 20 ML VIAL IV ONE (12:30)
[2023-05-07] MEDS ORDERED: LIDOCAINE 2% INJ 20 MG/ML (2 ML VIAL) ONE (12:30)
--- NOTE | 2023-05-07 12:48 | P.PCN ---
Date of Procedure: 05/07/23 Procedure(s) Performed: BRIEF HISTORY: Patient is a 82-year-old, pleasant, white female scheduled for an upper endoscopy as a part of evaluation of severe dysphagia for the last 4 months duration. Patient underwent Macie fundoplication for large hiatal hernia in December of this year and since then has been having progressive dysphagia to solids and is unable to eat. She has severe passive regurgitation and fullness in the throat area. She lost about 30 pounds since onset of the symptoms. She is been on omeprazole 40 mg daily with no help.. PROCEDURE PERFORMED: Esophagogastroduodenoscopy with balloon dilation. PREOPERATIVE DIAGNOSIS: Dysphagia to solids for the last 4 months duration. IV sedation per anesthesia. PROCEDURE: After informed consent was obtained, the patient was brought into the endoscopy unit. IV sedation was administered by Anesthesia under continuous monitoring. Initially the Olympus GIF-140 video endoscope was inserted into the mouth. Esophagus intubated without any difficulty. It was gradually advanced into the stomach and duodenum and carefully examined. The bulb and the second part of the duodenum appeared normal. The scope at this time was withdrawn to the stomach, adequately insufflated with air, and upon careful examination, mucosa of the antrum, body, cardia and the fundus appeared normal. small gastric polyps seen. The scope was then withdrawn into the esophagus. The GE junction was located at 39 cm from the incisors. the Macie fundoplication ap peared intact. The lower esophageal sphincter appeared tight and hence empiric dilation was performed using 18-20 mm TTS balloon for 60 seconds. The rest of the esophagus appeared normal. There were no erosions or ulcerations seen and the patient tolerated the procedure well. IMPRESSION: 1. Intact Macie fundoplication and tight lower esophageal sphincter status post balloon dilation using 18-20 mm TTS balloon. 2. Small gastric polyps. RECOMMENDATIONS: The findings of this examination were discussed with the patient as well as a family. She was advised to continue with small frequent meals and soft diet. Continue omeprazole 40 mg daily and follow antireflux measures..
[2023-05-07 13:07] VITALS: BP 165/75; PULSE 63; RESP 18
== END 2023-05-07 13:25 | disposition home or self-care (01) ==
LOC: ORWHC2ENDO 10:48
PROVIDERS: ATTEND Internal Medicine Gastroenterology
DX: K31.7 Polyp of stomach and duodenum (principal); I10 Essential (primary) hypertension; E78.5 Hyperlipidemia, unspecified; E07.9 Disorder of thyroid, unspecified; M19.90 Unspecified osteoarthritis, unspecified site; Z98.890 Other specified postprocedural states; Z79.899 Other long term (current) drug therapy; Z79.890 Hormone replacement therapy
CPT/HCPCS: 43249; J2405; J2704; J2001; C1726

== ENCOUNTER → 2023-08-04 | Outpatient (CLI) | payer MEDICARE ==
--- NOTE | 2023-08-05 21:04 | MR ---
EXAMINATION TYPE: MR brain and iac wo/w con DATE OF EXAM: 08/04/2023 5:54 PM CLINICAL INDICATION:Female, 82 years old with history of R42 DIZZINESS AND GIDDINESS; PHH, Dizziness and giddiness. COMPARISON: CT brain 06/15/2022. TECHNIQUE: Multi planar, multi sequence imaging was performed through the brain. Specialized thin s equences were obtained through the internal auditory canals. Pre-and post gadolinium sequences were obtained. MR contrast: IV Contrast: 5.5 cc Gadavist FINDINGS: Cerebral volume loss with proportional dilation of ventricular system. Scattered foci of hi gh T2 signal intensity are seen within the periventricular white matter. Midline structures show no a bnormality. Diffusion-weighted imaging shows no evidence of restricted diffusion. The susceptibility weighted images do not reveal any evidence for micro-hemorrhage. The bone marrow signal is within normal limits. Paranasal sinuses and mastoid air cells: Mild scattered paranasal sinus disease. Visualized orbits: Bilaterally aphakia. After administration of gadolinium, no abnormal enhancement is seen. The internal auditory canal sequences demonstrate no significant irregularity. The 7th cranial nerve s, 8 cranial nerves, and cerebellar pontine angles appear unremarkable. After the administration gayle olinium, no abnormal enhancement is seen within the internal auditory canals. Vascular loop: None. IMPRESSION: 1. No evidence of intracranial mass nor acute/subacute CVA. 2. No evidence of internal auditory canal abnormality. 3. Nonspecific white matter changes, likely secondary to small vessel ischemic disease. 4. Cerebral atrophy and proportional dilation of ventricular systems.
== END | disposition home or self-care (01) ==
LOC: RADMRIMAIN 16:14
PROVIDERS: ATTEND Otolaryngology
DX: G31.9 Degenerative disease of nervous system, unspecified (principal); R90.82 White matter disease, unspecified; R42 Dizziness and giddiness; G91.9 Hydrocephalus, unspecified
CPT/HCPCS: 70553; A9585

== ENCOUNTER → 2023-10-13 | Outpatient (CLI) | payer MEDICARE ==
--- NOTE | 2023-10-14 08:59 | MM ---
Reason for Exam: Screening (asymptomatic). Last screening mammogram was performed 12 month(s) ago. Patient History: Menarche at age 10. First Full-Term at age 18. Hysterectomy at age 37. Postmenopausal. Patient used Hormonal Contraceptives for 8 years. Benign Excisional Biopsy on the left side. 11/08/2020, Benign Core Biopsy on the left side. Risk Values: Jackie 5 year model risk: 1.7%. NCI Lifetime model risk: 1.9%. Prior Study Comparison: 11/08/2020 Left Diagnostic Mammogram, [facility]. 10/22/2021 Bilateral Diagnostic Mammogram, [facility]. 10/09/2022 Bilateral MG 3D screening mammo w/cad, [facility]. Tissue Density: The breast tissue is heterogeneously dense. This may lower the sensitivity of mammography. Findings: Analyzed By CAD. There is no suspicious group of microcalcifications or new suspicious mass in either breast. Stable chronic nodularity left breast. Previous biopsy marker noted. There is benign calcifications. Chronic nodularity right breast. Overall Assessment: Benign, BI-RAD 2 Management: Screening Mammogram of both breasts in 1 year. . Patient should continue monthly self-breast exams. A clinical breast exam by your physician is recommended on an annual basis. This exam should not preclude additional follow-up of suspicious palpable abnormalities. Note on Jackie scores and lifetime risk: 1. A Jackie score greater than 3% is considered moderate risk. If this is the case, consider specialist referral to assess eligibility for a risk reducing agent. 2. If overall lifetime risk for the development of breast cancer is 20% or higher, the patient may qualify for future screening with alternating mammogram and breast MRI. Electronically signed and approved by: Finn Clifton M.D. Radiologis
== END | disposition home or self-care (01) ==
LOC: RADMAMWWP 12:37
PROVIDERS: ATTEND Surgery
DX: Z12.31 Encounter for screening mammogram for malignant neoplasm of breast (principal); Z78.0 Asymptomatic menopausal state
CPT/HCPCS: 77063; 77067

== ENCOUNTER → 2023-12-19 | Outpatient (CLI) | payer MEDICARE ==
--- NOTE | 2023-12-19 13:18 | P.PN ---
Subjective Progress Note Date: 12/19/23 Principal diagnosis: fibrocystic breast disease 12-19-23 Principal diagnosis: fibrocystic breast changes Kisha is an 83 year old white female followed with fibrocystic breast changes. She had a bilateral mammogram performed on . The mammogram did not show any specific lesions of concern, there was chronic nodularity in the left breast but nothing of concern however secondary to the pain and ultrasound was performed. Secondary to the pain and ultrasound was done of the breast which led to a core biopsy on 3320. Core biopsy revealed hypocellular hyalinized stromal fibrosis and focal mild. Ductal chronic inflammation. This was felt to be benign and concordant. The x-rays were reviewed with radiology Dr. So. She has had 2 breast biopsies, open on the left, and one sterobiopsy all benign. She had a bilateral mammogram on 10-13-2023 which was BI-RADS 2 this was personally reviewed She is not complaining of any lumps, masses, or nodules in either breast. The patient had surgery for a hiatal hernia and since that time has had difficulty swallowing she has had her esophagus stretched several times and she has lost about 30 pounds. Caffeine: 1 cup of coffee in am nicotine: none chocolate: occasional Family History: sister: uterine brother: bladder cancer 2 paternal aunts: breast cancer Hormonal History: menarche: 10 , 1 miscarriage, breast fed: no, age at first : 18 menopause: hysterectomy at 37, left ovaries BCP: 8 years Surgical History: tonsil appy hysterectomy shoulder 4 bladder suspension 2 breast biopsies srugery for hiatal hernia Medical History: HTN high cholesterol Social History: smoke: none alcohol: occasional drugs: none - Constitutional Constitutional: Denies chills, Denies fever - EENT Comment: macular degeneration Eyes: denies blurred vision, denies pain Ears: bilateral: tinnitus, deny: decreased hearing Ears, nose, mouth and throat: Denies headache, Denies sore throat - Breasts Breasts: bilateral: as per HPI - Cardiovascular Cardiovascular: Denies chest pain, Denies shortness of breath - Respiratory Respiratory: Denies cough, - Gastrointestinal Gastrointestinal: Reports constipation, Denies abdominal pain, Denies diarrhea, Denies nausea, Denies vomiting - Genitourinary (Female) Comment: 4 bladder suspensions Genitourinary: Denies dysuria, Denies hematuria - Menstruation Menstruation: Reports postmenopausal - Musculoskeletal Musculoskeletal: Denies myalgias - Integumentary Integumentary: Denies pruritus, Denies rash - Neurological Comment: carpal tunnel left hand - Psychiatric Psychiatric: Denies anxiety, Denies depression - Endocrine Endocrine: Denies fatigue, Denies weight change - Hematologic/Lymphatic Comment: baby aspirin - Allergic/Immunologic Allergic/Immunologic: Reports as per HPI Objective - Vital Signs Vital signs: Vital Signs Temp 98.2 F 12/19/23 13:02 Pulse 61 12/19/23 13:02 Resp 15 12/19/23 13:02 BP 168/63 12/19/23 13:02 Pulse Ox 98 12/19/23 13:02 FiO2 Intake & Output 12/18/23 12/19/23 12/19/23 18:59 06:59 18:59 Weight 51.71 kg - Constitutional General appearance: Present: cooperative - EENT Eyes: Present: EOMI ENT: Present: hearing grossly normal - Neck Neck: Present: normal ROM - Respiratory Respiratory: bilateral: CTA - Cardiovascular Rhythm: regular Heart sounds: normal: S1, S2 - Integumentary Integumentary: Present: normal turgor - Musculoskeletal Musculoskeletal: Present: gait normal - Psychiatric Psychiatric: Present: A&O x's 3, appropriate affect, intact judgment & insight - Additional findings Additional findings: Breast exam: BRA: 42C Inspection: Bilateral grade 3 ptosis, right breast smaller than left breast Palpation: Right breast: Multiple positional exam fibrocystic changes no dominant masses or nodules of concern Right axilla: No adenopathy of concern Left breast: Multi-positional exam fibrocystic changes no dominant masses or nodules of concern Left axilla: No adenopathy of concern Assessment and Plan Assessment: Impression: 1. Bilateral mammogram 10-13-23 BIRAD 2 2. HTN 3. high cholesterol 4. weight loss after hiatal hernia surgery Plan: 1. Bilateral mammogram 1 year 2. follow up sooner if any problems CC: Dr. Finn Saul
[2023-12-19 13:38] VITALS: BP 168/63; PULSE 61; RESP 15; TEMP 98.2
== END ==
LOC: WWCWWP 12:30
PROVIDERS: ATTEND Surgery
DX: R92.8 Other abnormal and inconclusive findings on diagnostic imaging of breast (principal); N60.11 Diffuse cystic mastopathy of right breast; N60.12 Diffuse cystic mastopathy of left breast; I10 Essential (primary) hypertension; E78.00 Pure hypercholesterolemia, unspecified; R13.10 Dysphagia, unspecified; Z98.890 Other specified postprocedural states; Z80.3 Family history of malignant neoplasm of breast; Z91.048 Other nonmedicinal substance allergy status; Z88.5 Allergy status to narcotic agent; Z79.899 Other long term (current) drug therapy

== ENCOUNTER 2024-01-01 08:14 | Day surgery (SDC) | payer MEDICARE ==
[2023-12-31 09:36] VITALS: BMI 21.5
[2024-01-01] MEDS: LIDOCAINE 1% (10MG/ML) FOR IV START INTRADERMA ONE (09:02)
[2024-01-01] MEDS: LACTATED RINGERS 1,000 ML IV SCH (09:02)
[2024-01-01] MEDS ORDERED: PROPOFOL 10 MG/ML 20 ML VIAL IV ONE (09:09)
[2024-01-01] MEDS ORDERED: LIDOCAINE 1% INJ 10MG/ML (20 ML MDV) ONE (09:09)
--- NOTE | 2024-01-01 09:22 | P.PCN ---
Date of Procedure: 01/01/24 Procedure(s) Performed: BRIEF HISTORY: Patient is a 83-year-old pleasant white female scheduled for an upper endoscopy With a possible dilationas a part of evaluation of progressive dysphagia to solids since of the sigmoid fundoplication that was done in December of last year for a large hiatal hernia. She lost 40 pounds. PROCEDURE PERFORMED: Esophagogastroduodenoscopy With dilation. PREOPERATIVE DIAGNOSIS: Progressive dysphagia to solids since Macie fundoplication in December 2019. IV sedation per anesthesia. PROCEDURE: After informed consent was obtained, the patient was brought into the endoscopy unit. IV sedation was administered by Anesthesia under continuous monitoring. Initially the Olympus GIF-140 video endoscope was inserted into the mouth. Esophagus intubated without any difficulty. It was gradually advanced into the stomach and duodenum and carefully examined. The bulb and the second part of the duodenum appeared normal. The scope at this time was withdrawn to the stomach, adequately insufflated with air, and upon careful examination, mucosa of the antrum, body, cardia and the fundus appeared normal. The Macie fundoplication appeared intact.The scope was then withdrawn into the esophagus.Small hiatal hernia noted.The GE junction was located at 39 cm from the incisors. The lower esophagus and appeared slightly tight at the site of Macie fundoplication and this was dilated using 20 mm TTS balloon for 60 seconds.The rest of theesophagus appeared normal. There were no erosions or ulcerations seen and the patient tolerated the procedure well. IMPRESSION: 1. Tight lower esophageal sphincter status post balloon dilation using 18-20 mm TTS balloon 2. Small hiatal hernia 3. Gastric polyps RECOMMENDATIONS: The findings of this examination were discussed with the patient as well as a family. She was advised to continue with current medications and follow antireflux measures. Follow up in office in 3 months.
[2024-01-01 09:26] VITALS: TEMP 97.2
[2024-01-01 10:11] VITALS: BP 182/63; PULSE 67; RESP 20
== END 2024-01-01 10:00 | disposition home or self-care (01) ==
LOC: ORWHC2ENDO 08:14
PROVIDERS: ATTEND Internal Medicine Gastroenterology
DX: K31.7 Polyp of stomach and duodenum (principal); K44.9 Diaphragmatic hernia without obstruction or gangrene; I10 Essential (primary) hypertension; E78.5 Hyperlipidemia, unspecified; E07.9 Disorder of thyroid, unspecified; K21.9 Gastro-esophageal reflux disease without esophagitis; Z79.890 Hormone replacement therapy; Z79.899 Other long term (current) drug therapy; Z88.5 Allergy status to narcotic agent
CPT/HCPCS: 43249; J2001; J2704; C1726

== ENCOUNTER 2024-03-30 21:32 | Emergency (ER) | payer MEDICARE ==
[2024-03-30 21:51] VITALS: TEMP 97.7
--- NOTE | 2024-03-30 23:30 | ED ---
Abdominal Pain HPI - General Chief Complaint: Abdominal Pain Stated Complaint: Poss UTI Time Seen by Provider: 03/30/24 22:30 Source: patient, family Mode of arrival: wheelchair Limitations: no limitations - History of Present Illness Initial Comments: 83-year-old female presenting with chief complaint of "I think I have a UTI". Patient states that this morning she started having a burning pain to her vulva, she has also had burning when she urinates. She denies any abdominal pain or flank pain. No fever or chills. No nausea or vomiting. No urgency or frequency. She does have previous history of frequent UTIs, states that she has not had 1 in about a year. - Related Data Home Medications Medication Instructions Recorded Confirmed Amitriptyline HCl [Elavil] 10 mg PO HS 08/20/15 01/01/24 Ascorbic Acid [Vitamin C] 1,000 mg PO QAM 08/20/15 01/01/24 Aspirin [Adult Low Dose Aspirin EC] 81 mg PO HS 08/20/15 01/01/24 Glucosamine/Chondr Kay A Sod [Osteo 1 tab PO QAM 08/20/15 01/01/24 Bi-Flex Caplet] Magnesium Hydroxide [Milk of 2,400 mg PO HS PRN 08/20/15 01/01/24 Magnesia Concentrate] Rosuvastatin [Crestor] 20 mg PO HS 08/20/15 01/01/24 amLODIPine [Norvasc] 5 mg PO HS 08/20/15 01/01/24 Calcium Carbonate [Calcium] 600 mg PO QAM 11/02/20 01/01/24 Ibandronate Sodium [Boniva] 150 mg PO Q30D 11/02/20 01/01/24 Multivit-Min/Iron/Folic/Lutein 1 tab PO QAM 11/02/20 01/01/24 [Centrum Silver Women Tablet] lisinopriL 40 mg PO QAM 11/02/20 01/01/24 Cholecalciferol [Vitamin D3 (25 25 mcg PO QAM 02/18/22 01/01/24 Mcg = 1000 Iu)] Cranberry Fruit Extract [Cranberry] 500 mg PO QAM 02/18/22 01/01/24 Levothyroxine Sodium [Synthroid] 112 mcg PO QAM 02/18/22 01/01/24 Omeprazole Magnesium [PriLOSEC OTC] 20 mg PO Q48H 02/18/22 01/01/24 [place]-3/Dha/Epa/Fish Oil [Fish Oil 1 cap PO DAILY 06/13/22 01/01/24 1,000 mg Softgel] Vit C/E/Zn/Coppr/Lutein/Zeaxan 1 each PO QAM 10/17/22 01/01/24 [Preservision Areds 2 Softgel] Oxybutynin Chloride [oxyBUTYnin 10 mg PO QAM 12/17/22 01/01/24 chloride ER] carvediloL [Coreg*] 3.123 mg PO BID 12/17/22 01/01/24 Acetaminophen Tab [Tylenol] 500 mg PO Q6H PRN 12/24/22 01/01/24 Previous Rx's Medication Instructions Recorded Cephalexin [Keflex] 500 mg PO Q12HR 7 Days #14 cap 03/31/24 Allergies Allergy/AdvReac Type Severity Reaction Status Date / Time adhesive Allergy Rash/Hives Verified 03/30/24 21:51 codeine Allergy Nausea & Verified 03/30/24 21:51 Vomiting Review of Systems ROS Statement: Those systems with pertinent positive or pertinent negative responses have been documented in the HPI. ROS Other: All systems not noted in ROS Statement are negative. 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 History of Any Multi-Drug Resistant Organisms: None Reported Past Surgical History: Appendectomy, Bladder Surgery, Breast Surgery, Hys terectomy, Orthopedic Surgery, Tonsillectomy Additional Past Surgical History / Comment(s): Bladder suspensions x4, benign biopsy left breast x2, lower lip surgery, skin cancer removed L ankle, shoulder surgery/cannot recall laterality/spurs removed, L wrist carpal tunnel release, EGD, recent colonoscopy unsuccessful d/t poor prep, previous colonoscopy, difficulty swallowing Past Anesthesia/Blood Transfusion Reactions: Postoperative Nausea & Vomiting (PONV) Additional Past Anesthesia/Blood Transfusion Reaction / Comment(s): Severe PONV, pt has never had a blood transfusion. Past Psychological History: No Psychological Hx Reported Smoking Status: Never smoker - Past Family History Brother(s) Family Medical History: Cancer Additional Family Medical History / Comment(s): Bladder cancer. Father Family Medical History: Deep Vein Thrombosis (DVT), Hypertension, Myocardial Infarction ([place]) Additional Family Medical History / Comment(s): . Mother Family Medical History: CVA/TIA, Hypertension Sister(s) Family Medical History: Cancer, CVA/TIA Additional Family Medical History / Comment(s): Uterine cancer. General Exam Limitations: no limitations General appearance: alert, in no apparent distress Head exam: Present: atraumatic, normocephalic Eye exam: Present: normal appearance, EOMI Neck exam: Present: normal inspection. Absent: meningismus Respiratory exam: Absent: respiratory distress Cardiovascular Exam: Present: regular rate GI/Abdominal exam: Present: soft, tenderness (Suprapubic tenderness). Absent: distended, guarding, rebound, rigid Neurological exam: Present: alert, oriented X3 Psychiatric exam: Present: normal affect, normal mood Skin exam: Present: warm, dry Course Vital Signs 03/30/24 03/31/24 03/31/24 21:48 00:11 01:47 Temperature 97.7 F Pulse Rate 64 59 L 63 Respiratory 18 16 18 Rate Blood Pressure 148/60 201/84 164/63 O2 Sat by Pulse 97 96 96 Oximetry Medical Decision Making - Medical Decision Making Was pt. sent in by a medical professional or institution (Dr. PA, MANAGER BUSINESS [employer]ANNING, urgent care, hospital, or shelter...) When possible be specific @ -No Did you speak to anyone other than the patient for history (EMS, parent, family, police, friend...)? What history was obtained from this source @ -No Did you review nursing and triage notes (agree or disagree)? Why? @ -I reviewed and agree with nursing and triage notes Were old charts reviewed (outside hosp., previous admission, EMS record, old EKG, old radiological studies, urgent care reports/EKG's, shelter records)? Report findings @ -No old charts were reviewed Differential Diagnosis (chest pain, altered mental status, abdominal pain women, abdominal pain men, vaginal bleeding, weakness, fever, dyspnea, syncope, headache, dizziness, GI bleed, back pain, seizure, CVA, palpatations, mental health, musculoskeletal)? @ -MDM Differential Abdominal Pain Women: Appendicitis, Cholecystitis, diverticulosis, ischemic bowel, pancreatitis, hepatitis, UTI, gastroenteritis, AAA, incarcerated hernia, bowel obstruction, constipation, inflammatory bowel, hepatitis, peptic ulcer disease, splenic infarction, perforated viscus, vulvitis, ovarian torsion, PID, kidney stone, placenta abruption... This is not meant to be an all-inclusive list EKG interpreted by me (3pts min.). @ -As above X-rays interpreted by me (1pt min.). @ -None done CT interpreted by me (1pt min.). @ -None done U/S interpreted by me (1pt. min.). @ -None done What testing was considered but not performed or refused? (CT, X-rays, U/S, labs)? Why? @ -None What meds were considered but not given or refused? Why? @ -None Did you discuss the management of the patient with other professionals (professionals i.e. , PA, MANAGER BUSINESS [employer], lab, RT, psych nurse, social worker delinquency prevention, formulator, teacher, special officer automat, upper caser)? Give summary @ -No Was smoking cessation discussed for >3mins.? @ -No Was critical care preformed (if so, how long)? @ -No Were there social determinants of health that impacted care today? How? (Homelessness, low income, unemployed, alcoholism, drug addiction, transportation, low edu. Level, literacy, decrease access to med. care, assisted, rehab)? @ -No Was there de-escalation of care discussed even if they declined (Discuss DNR or withdrawal of care, Hospice)? DNR status @ -No What co-morbidities impacted this encounter? (DM, HTN, Smoking, COPD, CAD, Cancer, CVA, ARF, Chemo, Hep., AIDS, mental health diagnosis, sleep apnea, mor bid obesity)? @ -None Was patient admitted / discharged? Hospital course, mention meds given and ro brianna, prescriptions, significant lab abnormalities, going to OR and other pertinent info. @ -83-year-old female presenting with chief complaint of dysuria and burning pain to the vulva. She thinks she has a UTI. History and physical exam are conducted. No leukocytosis or anemia. Mild transaminitis. Urine shows positive nitrites and 22 WBCs with many bacteria. Patient will be treated with Keflex. Educated on today's findings and treatment plan. Discharged. Follow- up with PCP. Report back to ER with any new or worsening symptoms. Discussed return parameters and answered all questions. Patient conveyed verbal understanding and agreed to the plan. I discussed this case in detail with my attending Dr. Keith Undiagnosed new problem with uncertain prognosis? @ -No Drug Therapy requiring intensive monitoring for toxicity (Heparin, Nitro, Insulin, Cardizem)? @ -No Were any procedures done? @ -No Diagnosis/symptom? @ -UTI Acute, or Chronic, or Acute on Chronic? @ -Acute Uncomplicated (without systemic symptoms) or Complicated (systemic symptoms)? @ -Uncomplicated Side effects of treatment? @ -No Exacerbation, Progression, or Severe Exacerbation? @ -No Poses a threat to life or bodily function? How? (Chest pain, [place], [place], pneumonia, PE, COPD, DKA, ARF, appy, cholecystitis, CVA, Diverticulitis, Homicidal, Suicidal, threat to staff... and all critical care pts) @ -Low likelihood at this time, threat if not properly treated - Lab Data Result diagrams: 03/30/24 23:31 03/30/24 23:31 Lab Results 03/30/24 03/30/24 03/30/24 Range/Units 23:31 23:31 23:31 WBC 6.1 (3.8-10.6) k/uL RBC 4.08 (3.80-5.40) m/uL Hgb 12.7 (11.4-16.0) gm/dL Hct 39.5 (34.0-46.0) % MCV 96.9 (80.0-100.0) fL MCH 31.3 (25.0-35.0) pg MCHC 32.3 (31.0-37.0) g/dL RDW 13.2 (11.5-15.5) % Plt Count 151 (150-450) k/uL MPV 9.0 Neutrophils % 54 % Lymphocytes % 30 % Monocytes % 8 % Eosinophils % 3 % Basophils % 1 % Neutrophils # 3.3 (1.3-7.7) k/uL Lymphocytes # 1.9 (1.0-4.8) k/uL Monocytes # 0.5 (0-1.0) k/uL Eosinophils # 0.2 (0-0.7) k/uL Basophils # 0.0 (0-0.2) k/uL Sodium 141 (137-145) mmol/L Potassium 3.7 (3.5-5.1) mmol/L Chloride 108 H (98-107) mmol/L Carbon Dioxide 27 (22-30) mmol/L Anion Gap 6 mmol/L BUN 36 H (7-17) mg/dL Creatinine 0.68 (0.52-1.04) mg/dL Est GFR (CKD-EPI)AfAm >90 (>60 ml/min/1.73 sqM) Est GFR (CKD-EPI)NonAf 81 (>60 ml/min/1.73 sqM) Glucose 115 H (74-99) mg/dL Calcium 9.6 (8.4-10.2) mg/dL Total Bilirubin 0.5 (0.2-1.3) mg/dL AST 55 H (14-36) U/L ALT 81 H (4-34) U/L Alkaline Phosphatase 81 (38-126) U/L Total Protein 5.5 L (6.3-8.2) g/dL Albumin 3.6 (3.5-5.0) g/dL Urine Color Dark Brown Urine Appearance Cloudy H (Clear) Urine pH 5.5 (5.0-8.0) Ur Specific [place] 1.026 (1.001-1.035) Urine Protein Trace H (Negative) Urine Glucose (UA) Negative (Negative) Urine Ketones Negative (Negative) Urine Blood Negative (Negative) Urine Nitrite Positive H (Negative) Urine Bilirubin 1+ H (Negative) Urine Urobilinogen 4.0 (<2.0) mg/dL Ur Leukocyte Esterase Negative (Negative) Urine RBC 3 (0-5) /hpf Urine WBC 22 H (0-5) /hpf Ur Squamous Epith Cells 3 (0-4) /hpf Calcium Oxalate Crystal Moderate H (None) /hpf Amorphous Sediment Occasional H (None) /hpf Urine Bacteria Many H (None) /hpf Hyaline Casts 19 H (0-2) /lpf Urine Mucus Few H (None) /hpf Disposition Clinical Impression: Urinary tract infection Disposition: HOME SELF-CARE Condition: Good Instructions (If sedation given, give patient instructions): Urinary Tract Infection in Women (ED) Additional Instructions: Follow up with PCP. Report back to ER with any new or worsening symptoms. Prescriptions: Cephalexin [Keflex] 500 mg PO Q12HR 7 Days #14 cap Is patient prescribed a controlled substance at d/c from ED?: No Referrals: Finn Saul MD [Primary Care Provider] - 1-2 days Time of Disposition: 01:52
[2024-03-30 23:51] LABS: Basophils % (A) 1 %; Eosinophils # (A) 0.2 k/uL (0-0.7); Eosinophils % (A) 3 %; HCT 39.5 % (34.0-46.0); HGB 12.7 gm/dL (11.4-16.0); Lymphocytes # (A) 1.9 k/uL (1.0-4.8); Lymphocytes % (A) 30 %; MCH 31.3 pg (25.0-35.0); MCHC 32.3 g/dL (31.0-37.0); MCV 96.9 fL (80.0-100.0); Monocytes # (A) 0.5 k/uL (0-1.0); Monocytes % (A) 8 %; Neutrophils # (A) 3.3 k/uL (1.3-7.7); Neutrophils % (A) 54 %; Platelet Count 151 k/uL (150-450); RBC 4.08 m/uL (3.80-5.40); RDW 13.2 % (11.5-15.5); WBC 6.1 k/uL (3.8-10.6)
[2024-03-31 00:05] LABS: Amorphous Sediment,Urine Occasional /hpf; Appearance,Urine Cloudy (Clear); Bacteria,Urine Many /hpf; Bilirubin,Urine 1+ (Negative); Blood,Urine Negative (Negative); Calcium Oxalate Crystals,Urine Moderate /hpf; Color,Urine Dark Brown; Glucose,Urine (UA) Negative (Negative); Hyaline Casts,Urine 19 /lpf (0-2); Ketones,Urine Negative (Negative); Leukocyte Esterase,Urine Negative (Negative); Mucus,Urine Few /hpf; Nitrite,Urine Positive (Negative); PH, Urine 5.5 (5.0-8.0); Protein,Urine Trace (Negative); RBC,Urine 3 /hpf (0-5); Specific Gravity,Urine 1.026 (1.001-1.035); Squamous Epithelial Cell,Urine 3 /hpf (0-4); WBC,Urine 22 /hpf (0-5)
[2024-03-31 00:31] LABS: ALT 81 U/L (4-34); AST 55 U/L (14-36); African American GFR (CKD) >90 (>60 ml/min/1.73 sqM); Albumin 3.6 g/dL (3.5-5.0); Alkaline Phosphatase 81 U/L (38-126); Anion Gap 6 mmol/L; Blood Urea Nitrogen 36 mg/dL (7-17); Calcium 9.6 mg/dL (8.4-10.2); Carbon Dioxide 27 mmol/L (22-30); Chloride 108 mmol/L (98-107); Glucose 115 mg/dL (74-99); Non-African American GFR(CKD) 81 (>60 ml/min/1.73 sqM); Potassium 3.7 mmol/L (3.5-5.1); Sodium 141 mmol/L (137-145); Total Bilirubin 0.5 mg/dL (0.2-1.3); Total Protein 5.5 g/dL (6.3-8.2)
[2024-03-31] MEDS: hydrALAZINE HCL 20 MG/ML 1 ML VIAL IVP STA (01:25)
[2024-03-31 01:49] VITALS: BP 164/63; PULSE 63; RESP 18
[2024-03-31] MEDS: CEPHALEXIN 500 MG CAP PO STA (02:04)
== END 2024-03-31 02:15 | disposition home or self-care (01) ==
LOC: EC 21:32
DX: N39.0 Urinary tract infection, site not specified (principal); B96.20 Unspecified Escherichia coli [E. coli] as the cause of diseases classified elsewhere; Z88.5 Allergy status to narcotic agent; Z88.8 Allergy status to other drugs, medicaments and biological substances
CPT/HCPCS: 36415; 80053; 85025; 81001; 87086; 87077; 87186; 99284; 96374; J0360

== ENCOUNTER → 2024-04-09 | Outpatient (CLI) | payer MEDICARE ==
--- NOTE | 2024-04-09 12:04 | FL ---
ESOPHOGRAM. HISTORY: Dysphagia. Previous hiatal hernia repair. Esophagram was performed per the air contrast technique. The patient swallowed barium and effervesce nt crystals without difficulty or delay. Esophageal peristalsis and motility appear to be within normal limits. Changes of a prior esophagea l hiatal hernia repair without recurrence. There is luminal narrowing at the GE junction. There is no evidence for filling defect, mass or diverticulum. Subsequently single contrast cervical esophagram was performed which fails demonstrate evidence for a spiration penetration or mass. IMPRESSION: Changes of a prior esophageal hiatal hernia repair without recurrence. There is luminal n arrowing at the GE junction.
== END | disposition home or self-care (01) ==
LOC: RADUSWWP 10:33
PROVIDERS: ATTEND Thoracic Surgery (Cardiothoracic Vascular Surgery)
DX: K22.89 Other specified disease of esophagus (principal); R13.10 Dysphagia, unspecified; Z98.890 Other specified postprocedural states
CPT/HCPCS: 74220

== ENCOUNTER 2025-03-05 19:02 | Inpatient (IN) | payer MEDICARE ==
--- NOTE | 2025-03-05 19:33 | ED ---
General Adult HPI - General Chief complaint: Chest Pain Stated complaint: Chest Pain/SOB Time Seen by Provider: 03/05/25 19:11 Source: patient, RN notes reviewed Mode of arrival: ambulatory Limitations: no limitations - History of Present Illness Initial comments: 84-year-old female presents to the emergency department for evaluation of chest pain. Patient notes that she was at the grocery store around 3 PM today when she noticed a stabbing pain in her chest. She notes that at that time it was difficult for her to catch her breath. She notes feeling lightheaded as well. She denies any nausea, vomiting, diaphoresis. She endorses a history of high blood pressure. Patient also notes that she took a fall on Friday and was not evaluated following this. She notes that she fell onto the concrete. She does endorse increased headache following this. She did not lose consciousness. She is not on blood thinners. - Related Data Home Medications Medication Instructions Recorded Confirmed Amitriptyline HCl [Elavil] 10 mg PO HS 08/20/15 03/06/25 Aspirin [Adult Low Dose Aspirin EC] 81 mg PO HS 08/20/15 03/06/25 Glucosamine/Chondr Kay A Sod [Osteo 1 tab PO DAILY 08/20/15 03/06/25 Bi-Flex Caplet] Rosuvastatin [Crestor] 20 mg PO HS 08/20/15 03/06/25 amLODIPine [Norvasc] 10 mg PO HS 08/20/15 03/06/25 Ibandronate Sodium [Boniva] 150 mg PO Q30D 11/02/20 03/06/25 Multivit-Min/Iron/Folic/Lutein 1 tab PO HS 11/02/20 03/06/25 [Centrum Silver Women Tablet] Cholecalciferol [Vitamin D3 (25 25 mcg PO DAILY 02/18/22 03/06/25 Mcg = 1000 Iu)] Cranberry Fruit Extract [Cranberry] 500 mg PO DAILY 02/18/22 03/06/25 Levothyroxine Sodium [Synthroid] 112 mcg PO DAILY 02/18/22 03/06/25 [place]-3/Dha/Epa/Fish Oil [Fish Oil 1 cap PO DAILY 06/13/22 03/06/25 1,000 mg Softgel] Vit C/E/Zn/Coppr/Lutein/Zeaxan 1 cap PO BID 10/17/22 03/06/25 [Preservision Areds 2 Softgel] Oxybutynin Chloride [oxyBUTYnin 10 mg PO DAILY 12/17/22 03/06/25 chloride ER] carvediloL [Coreg*] 12.5 mg PO BID 12/17/22 03/06/25 Ascorbic Acid [Vitamin C] 1,000 mg PO DAILY 03/06/25 03/06/25 Nystatin 100,000Unit/gm Cream 1 applic TOPICAL BID PRN 03/06/25 03/06/25 [Mycostatin Cream] Omeprazole [PriLOSEC] 40 mg PO Q48H 03/06/25 03/06/25 lisinopriL [Prinivil] 20 mg PO BID 03/06/25 03/06/25 Allergies Allergy/AdvReac Type Severity Reaction Status Date / Time adhesive Allergy Rash/Hives Verified 03/06/25 09:58 codeine Allergy Nausea & Verified 03/06/25 09:58 Vomiting Review of Systems ROS Statement: Those systems with pertinent positive or pertinent negative responses have been documented in the HPI. ROS Other: All systems not noted in ROS Statement are negative. 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 History of Any Multi-Drug Resistant Organisms: None Reported Past Surgical History: Appendectomy, Bladder Surgery, Breast Surgery, Hysterectomy, Orthopedic Surgery, Tonsillectomy Additional Past Surgical History / Comment(s): Bladder suspensions x4, benign biopsy left breast x2, lower lip surgery, skin cancer removed L ankle, shoulder surgery/cannot recall laterality/spurs removed, L wrist carpal tunnel release, EGD, recent colonoscopy unsuccessful d/t poor prep, previous colonoscopy, difficulty swallowing Past Anesthesia/Blood Transfusion Reactions: Postoperative Nausea & Vomiting (PONV) Additional Past Anesthesia/Blood Transfusion Reaction / Comment(s): Severe PONV, pt has never had a blood transfusion. Past Psychological History: No Psychological Hx Reported Smoking Status: Never smoker Past Alcohol Use History: None Reported Past Drug Use History: None Reported - Past Family History Brother(s) Family Medical History: Cancer Additional Family Medical History / Comment(s): Bladder cancer. Father Family Medical History: Deep Vein Thrombosis (DVT), Hypertension, Myocardial Infarction (NE) Additional Family Medical History / Comment(s): . Mother Family Medical History: CVA/TIA, Hypertension Sister(s) Family Medical History: Cancer, CVA/TIA Additional Family Medical History / Comment(s): Uterine cancer. General Exam Limitations: no limitations General appearance: alert, in no apparent distress Head exam: Present: atraumatic, normocephalic, normal inspection Eye exam: Present: normal appearance, PERRL, EOMI. Absent: scleral icterus, conjunctival injection, periorbital swelling ENT exam: Present: normal exam, mucous membranes moist Respiratory exam: Present: normal lung sounds bilaterally. Absent: respiratory distress, wheezes, rales, rhonchi, stridor Cardiovascular Exam: Present: regular rate, normal rhythm, normal heart sounds. Absent: systolic murmur, diastolic murmur, rubs, gallop, clicks GI/Abdominal exam: Present: soft. Absent: distended, tenderness, guarding, rebound, rigid Extremities exam: Present: normal inspection, full ROM, normal capillary refill. Absent: tenderness, pedal edema, joint swelling, calf tenderness Back exam: Present: normal inspection Neurological exam: Present: alert, oriented X3 Psychiatric exam: Present: normal affect, normal mood Skin exam: Present: warm, dry, intact, normal color. Absent: rash Course Vital Signs 03/05/25 03/05/25 03/05/25 19:04 19:59 20:28 Temperature 97.5 F L Pulse Rate 60 62 56 L Respiratory 20 18 18 Rate Blood Pressure 186/65 180/68 162/79 O2 Sat by Pulse 98 96 99 Oximetry 03/05/25 23:44 Temperature 97.8 F Pulse Rate 70 Respiratory 18 Rate Blood Pressure 165/71 O2 Sat by Pulse 98 Oximetry Medical Decision Making - Medical Decision Making Was pt. sent in by a medical professional or institution (, PA, PULP GRINDER, urgent care, hospital, or intermediate...) When possible be specific @ -No Did you speak to anyone other than the patient for history (EMS, parent, family, police, friend...)? What history was obtained from this source @ -No Did you review nursing and triage notes (agree or disagree)? Why? @ -I reviewed and agree with nursing and triage notes Were old charts reviewed (outside hosp., previous admission, EMS record, old EKG, old radiological studies, urgent care reports/EKG's, intermediate records)? Report findings @ -No old charts were reviewed Differential Diagnosis (chest pain, altered mental status, abdominal pain women, abdominal pain men, vaginal bleeding, weakness, fever, dyspnea, syncope, headache, dizziness, GI bleed, back pain, seizure, CVA, palpatations, mental health, musculoskeletal)? @ -Differential Chest Pain: Stable Angina, Unstable Angina, STEMI, NSTEMI Aortic Dissection, Pneumothorax, Musculoskeletal, Esophageal Spasm GERD, Cholecystitis, Pancreatitis, Zoster, this is not meant to be an all-inclusive list. EKG interpreted by me (3pts min.). @ -EKG@ X-rays interpreted by me (1pt min.). @ -Chest x-ray reveals no acute process CT interpreted by me (1pt min.). @ -CT of the chest reveals developing groundglass opacities in the right lower lobe which could represent atelectasis versus developing pneumonia U/S interpreted by me (1pt. min.). @ -None done What testing was considered but not performed or refused? (CT, X-rays, U/S, labs)? Why? @ -None What meds were considered but not given or refused? Why? @ -None Did you discuss the management of the patient with other professionals (adán sandhu i.e. , PA, PULP GRINDER, lab, RT, psych nurse, social service technician, take off worker, teacher, commercial account officer, business case analyst)? Give summary @ -Case discussed with Dr. Saul who was accepting of admission Was smoking cessation discussed for >3mins.? @ -No Was critical care preformed (if so, how long)? @ -No Were there social determinants of health that impacted care today? How? (Homelessness, low income, unemployed, alcoholism, drug addiction, transportation, low edu. Level, literacy, decrease access to med. care, alf, rehab)? @ -No Was there de-escalation of care discussed even if they declined (Discuss DNR or withdrawal of care, Hospice)? DNR status @ -No What co-morbidities impacted this encounter? (DM, HTN, Smoking, COPD, CAD, Cancer, CVA, ARF, Chemo, Hep., AIDS, mental health diagnosis, sleep apnea, morbid obesity)? @ -None Was patient admitted / discharged? Hospital course, mention meds given and route, prescriptions, significant lab abnormalities, going to OR and other pertinent info. @ -AdmittedPatient presented emergency department for evaluation of chest pain. Laboratory studies revealed no significant leukocytosis, hemoglobin 12.2; elevated D-dimer at 0.92, CMP is nonactionable, negative troponin UA shows no evidence of infectious process. Patient underwent chest x-ray reveals no acute process. CT of the head chest reveals no evidence of PE, subtle minimal groundglass opacities within the right lower lobe which may represent developing infectious/inflammatory process versus atelectasis, based on the patient's clinical presentation I do not believe that this is infectious at this time. Patient will be admitted to the hospital for chest pain workup. Case discussed with Dr. Saul who is accepting of the admission. Undiagnosed new problem with uncertain prognosis? @ -No Drug Therapy requiring intensive monitoring for toxicity (Heparin, Nitro, Insulin, Cardizem)? @ -No Were any procedures done? @ -No Diagnosis/symptom? @ -Chest pain Acute, or Chronic, or Acute on Chronic? @ -Acute Uncomplicated (without systemic symptoms) or Complicated (systemic symptoms)? @ -Uncomplicated Side effects of treatment? @ -No Exacerbation, Progression, or Severe Exacerbation? @ -No Poses a threat to life or bodily function? How? (Chest pain, [place], NE, pneumonia, PE, COPD, DKA, ARF, appy, cholecystitis, CVA, Diverticulitis, Homicidal, Suicidal, threat to staff... and all critical care pts) @ -Yes - Lab Data Result diagrams: 03/05/25 19:24 03/05/25 19:24 Lab Results 03/05/25 03/05/25 03/05/25 Range/Units 19:24 19:24 19:24 WBC 6.93 (4.50-10.00) 10*3/uL RBC 4.00 L (4.10-5.20) 10*6/uL Hgb 12.2 (12.0-15.0) g/dL Hct 37.5 (37.2-46.3) % MCV 93.8 (80.0-97.0) fL MCH 30.5 (27.0-32.0) pg MCHC 32.5 (32.0-37.0) g/dL Plt Count 169 (140-440) 10*3/uL MPV 10.4 (9.5-12.2) fL Immature Gran % (Auto) 0.1 % Neutrophils % 60.1 % Lymphocytes % 27.4 % Monocytes % 8.9 % Eosinophils % 2.9 % Basophils % 0.6 % Immature Gran # 0.01 (0.00-0.04) 10*3/uL Neutrophils # 4.16 (1.80-7.70) 10*3/uL Lymphocytes # 1.90 (0.90-5.00) 10*3/uL Monocytes # 0.62 (0.20-1.00) 10*3/uL Eosinophils # 0.20 (0.04-0.35) 10*3/uL Basophils # 0.04 (0.00-0.10) 10*3/uL PT 11.0 (10.0-12.5) sec INR 1.0 (<1.2) APTT 25.8 (22.0-30.0) sec D-Dimer 0.92 H (<0.60) mg/L FEU Sodium 137 (137-145) mmol/L Potassium 3.7 (3.5-5.1) mmol/L Chloride 103 (98-107) mmol/L Carbon Dioxide 26 (22-30) mmol/L Anion Gap 8 mmol/L BUN 28 H (7-17) mg/dL Creatinine 0.59 (0.52-1.04) mg/dL Est GFR (CKD-EPI)AfAm >90 (>60 ml/min/1.73 sqM) Est GFR (CKD-EPI)NonAf 84 (>60 ml/min/1.73 sqM) Glucose 141 H (74-99) mg/dL Calcium 9.7 (8.4-10.2) mg/dL Magnesium 2.1 (1.6-2.3) mg/dL Total Bilirubin 0.5 (0.2-1.3) mg/dL AST 36 (14-36) U/L ALT 44 H (4-34) U/L Alkaline Phosphatase 96 (38-126) U/L Troponin I (0.000-0.034) ng/mL Total Protein 6.1 L (6.3-8.2) g/dL Albumin 4.0 (3.5-5.0) g/dL Urine Color Urine Appearance (Clear) Urine pH (5.0-8.0) Ur Specific [place] (1.001-1.035) Urine Protein (Negative) Urine Glucose (UA) (Negative) Urine Ketones (Negative) Urine Blood (Negative) Urine Nitrite (Negative) Urine Bilirubin (Negative) Urine Urobilinogen (<2.0) mg/dL Ur Leukocyte Esterase (Negative) Urine RBC (0-5) /hpf Urine WBC (0-5) /hpf Calcium Oxalate Crystal (None) /hpf Amorphous Sediment (None) /hpf Hyaline Casts (0-2) /lpf Urine Yeast (Budding) (None) /hpf 03/05/25 03/05/25 Range/Units 19:24 19:55 WBC (4.50-10.00) 10*3/uL RBC (4.10-5.20) 10*6/uL Hgb (12.0-15.0) g/dL Hct (37.2-46.3) % MCV (80.0-97.0) fL MCH (27.0-32.0) pg MCHC (32.0-37.0) g/dL Plt Count (140-440) 10*3/uL MPV (9.5-12.2) fL Immature Gran % (Auto) % Neutrophils % % Lymphocytes % % Monocytes % % Eosinophils % % Basophils % % Immature Gran # (0.00-0.04) 10*3/uL Neutrophils # (1.80-7.70) 10*3/uL Lymphocytes # (0.90-5.00) 10*3/uL Monocytes # (0.20-1.00) 10*3/uL Eosinophils # (0.04-0.35) 10*3/uL Basophils # (0.00-0.10) 10*3/uL PT (10.0-12.5) sec INR (<1.2) APTT (22.0-30.0) sec D-Dimer (<0.60) mg/L FEU Sodium (137-145) mmol/L Potassium (3.5-5.1) mmol/L Chloride (98-107) mmol/L Carbon Dioxide (22-30) mmol/L Anion Gap mmol/L BUN (7-17) mg/dL Creatinine (0.52-1.04) mg/dL Est GFR (CKD-EPI)AfAm (>60 ml/min/1.73 sqM) Est GFR (CKD-EPI)NonAf (>60 ml/min/1.73 sqM) Glucose (74-99) mg/dL Calcium (8.4-10.2) mg/dL Magnesium (1.6-2.3) mg/dL Total Bilirubin (0.2-1.3) mg/dL AST (14-36) U/L ALT (4-34) U/L Alkaline Phosphatase (38-126) U/L Troponin I <0.012 (0.000-0.034) ng/mL Total Protein (6.3-8.2) g/dL Albumin (3.5-5.0) g/dL Urine Color Yellow Urine Appearance Cloudy H (Clear) Urine pH 7.0 (5.0-8.0) Ur Specific [place] 1.017 (1.001-1.035) Urine Protein Negative (Negative) Urine Glucose (UA) Negative (Negative) Urine Ketones Negative (Negative) Urine Blood Negative (Negative) Urine Nitrite Negative (Negative) Urine Bilirubin Negative (Negative) Urine Urobilinogen <2.0 (<2.0) mg/dL Ur Leukocyte Esterase Negative (Negative) Urine RBC 13 H (0-5) /hpf Urine WBC 4 (0-5) /hpf Calcium Oxalate Crystal Rare H (None) /hpf Amorphous Sediment Rare H (None) /hpf Hyaline Casts 1 (0-2) /lpf Urine Yeast (Budding) Occasional H (None) /hpf Disposition Clinical Impression: Chest pain Disposition: ADMITTED IP TO THIS [facility] Condition: Stable Is patient prescribed a controlled substance at d/c from ED?: No
[2025-03-05 19:53] LABS: Basophils # (A) 0.04 10*3/uL (0.00-0.10); Basophils % (A) 0.6 %; Eosinophils # (A) 0.20 10*3/uL (0.04-0.35); Eosinophils % (A) 2.9 %; HCT 37.5 % (37.2-46.3); HGB 12.2 g/dL (12.0-15.0); Lymphocytes # (A) 1.90 10*3/uL (0.90-5.00); Lymphocytes % (A) 27.4 %; MCH 30.5 pg (27.0-32.0); MCHC 32.5 g/dL (32.0-37.0); MCV 93.8 fL (80.0-97.0); Monocytes # (A) 0.62 10*3/uL (0.20-1.00); Monocytes % (A) 8.9 %; Neutrophils # (A) 4.16 10*3/uL (1.80-7.70); Neutrophils % (A) 60.1 %; Platelet Count 169 10*3/uL (140-440); RBC 4.00 10*6/uL (4.10-5.20); RDW 13.6 % (11.5-14.5); WBC 6.93 10*3/uL (4.50-10.00)
[2025-03-05] MEDS: NITROGLYCERIN SL TABS 0.4 MG TAB SUBLINGUAL STA (19:58)
[2025-03-05] MEDS: SODIUM CHLORIDE 0.9% 1,000 ML IV STA (19:58)
[2025-03-05 19:59] LABS: ALT 44 U/L (4-34); AST 36 U/L (14-36); African American GFR (CKD) >90 (>60 ml/min/1.73 sqM); Albumin 4.0 g/dL (3.5-5.0); Alkaline Phosphatase 96 U/L (38-126); Anion Gap 8 mmol/L; Blood Urea Nitrogen 28 mg/dL (7-17); Calcium 9.7 mg/dL (8.4-10.2); Carbon Dioxide 26 mmol/L (22-30); Chloride 103 mmol/L (98-107); Glucose 141 mg/dL (74-99); Magnesium 2.1 mg/dL (1.6-2.3); Non-African American GFR(CKD) 84 (>60 ml/min/1.73 sqM); Potassium 3.7 mmol/L (3.5-5.1); Sodium 137 mmol/L (137-145); Total Protein 6.1 g/dL (6.3-8.2)
[2025-03-05 20:02] LABS: INR 1.0 (<1.2); Partial Thromboplastin Time 25.8 sec (22.0-30.0); Prothrombin Time 11.0 sec (10.0-12.5)
--- NOTE | 2025-03-05 20:07 | XR ---
EXAMINATION TYPE: XR chest 2V DATE OF EXAM: 03/05/2025 8:03 PM COMPARISON: Chest radiographs from 10/18/2024 TECHNIQUE: XR chest 2V Frontal and lateral views of the chest. CLINICAL INDICATION:Female, 84 years old with history of Chest Pain; FINDINGS: Lungs/Pleura: There is flattening of the diaphragm with increased lucency of the lungs. No evidence o f pneumothorax, pleural effusion or focal consolidation. Pulmonary vascularity: Unremarkable. Heart/mediastinum: Cardiomediastinal silhouette is unremarkable. Atherosclerotic calcifications are seen in the aorta. Musculoskeletal: Multiple level degenerative disc disease changes seen throughout the spine. IMPRESSION: 1. No acute cardiopulmonary disease process. 2. COPD changes. [facility], , 03/05/2025 8:05 PM
--- NOTE | 2025-03-05 21:11 | CT ---
EXAMINATION TYPE: CT chest angio for PE CT DLP: 227.7 mGycm, Automated exposure control for dose reduction was used. DATE OF EXAM: 03/05/2025 9:02 PM COMPARISON: Chest radiograph from same day. CT chest 02/18/2022, CT chest abdomen 08/24/2021 CLINICAL INDICATION:Female, 84 years old with history of chest pain, elevated dimer; CHEST PAIN TECHNIQUE/CONTRAST: CTA scan of the thorax is performed with IV Contrast, patient injected with 100 ml mL of Isovue 370, pulmonary embolism protocol. MIP images are created and reviewed. FINDINGS: Pulmonary Artery: There is no evidence for a filling defect within the pulmonary vasculature to sugge st acute pulmonary embolism. The pulmonary artery is of normal size. Lungs/Pleura: No evidence of focal consolidation, pleural effusion or pneumothorax. Minimal bilateral lower lobe dependent subsegmental atelectasis. Subtle patchy reticular groundglass opacities within the right lower lobe. Few scattered small pulmonary cysts. Punctate calcified granuloma within the po sterior subpleural aspect of the left upper lobe. No new or enlarging pulmonary nodules. Linear atele ctasis within the lingula along the left major fissure. Airway: Large airways are patent. Heart: Cardiomegaly is demonstrated.No pericardial effusion. No significant coronary artery calcifica tions. Vasculature: No evidence of aortic aneurysm. Mild atherosclerotic calcification of the aorta and its branches. Mediastinum: No evidence of adenopathy. Musculoskeletal: No acute osseous abnormalities. DISH of the mid to lower thoracic spine. Soft Tissues: Unremarkable. Lower neck: Thyroid gland is atrophic or surgically absent.. Upper Abdomen: Postsurgical changes at the GE junction with moderate size hiatal hernia. Redemonstrat ion of hypodense lesions within the spleen dating back to 2020 and compared to represent a benign pro cess such as hemangiomas or cysts. 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 Largest measures up to 1.3 cm. IMPRESSION: 1. No evidence of pulmonary embolism. 2. Subtle minimal groundglass reticular opacities within the right lower lobe which may represent dev eloping infectious/inflammatory process versus atelectasis. [facility], , 03/05/2025 9:09 PM
--- NOTE | 2025-03-05 21:18 | CT ---
EXAMINATION TYPE: CT brain cspine wo con CT DLP: 1173.2 mGycm, Automated exposure control for dose reduction was used. DATE OF EXAM: 03/05/2025 9:01 PM COMPARISON: MR brain and IAC 08/04/2023, CT brain 06/15/2022, CT brain C-spine 02/18/2022. CLINICAL INDICATION:Female, 84 years old with history of fall, headache; FALL, pain TECHNIQUE: Brain: Multiple axial CT images of the brain were obtained without IV contrast. Cspine: Axial CT images from the skull base to the inferior aspect of T2 we obtained without intraven ous contrast. Coronal and sagittal reformatted images were also reviewed. FINDINGS: Brain: Extra-axial spaces: No abnormal extra-axial fluid collections. Ventricular system: Within normal limits Cerebral parenchyma: Cerebral atrophy. No acute intraparenchymal hemorrhage or mass effect. The leong -white junction is well differentiated. Scattered hypoattenuating areas are seen within the periventr icular white matter. Cerebellum: Unremarkable. Mass effect: No evidence of midline shift. Intracranial vasculature: Atherosclerotic calcifications of the intracranial vessels. Soft tissues: Normal. Calvarium/osseous structures: No depressed skull fracture. Paranasal sinuses and mastoid air cells: Clear. Visualized orbits: Orbital contents are intact. Cervical spine: Fracture: None. Osseous structures: Multilevel degenerative disc disease changes with endplate spurring and disc oste ophyte complex's. Multilevel facet arthropathy. Vertebral alignment: Stable grade 1 anterolisthesis of C5 on C6. Likely degenerative. Spinal canal/Neural Foramina: No evidence of significant spinal canal narrowing. Facet joint uncovert ebral joint arthropathy scattered throughout the cervical spine with varying degrees of neural forami nal stenosis. Neck soft tissues: Prevertebral soft tissues are within normal limits. Other: The airway is patent. Please refer to dedicated CTA chest of the same day for findings. Thyroi d gland is atrophic or surgically absent. IMPRESSION: 1. No acute intracranial process. 2. Nonspecific mild white matter changes, likely secondary to chronic small vessel ischemic disease. 3. No evidence of cervical spine fracture. 4. Mild multilevel degenerative disc disease. [facility], , 03/05/2025 9:15 PM
[2025-03-05] MEDS: ASPIRIN 81 MG PO STA (21:23)
[2025-03-05 22:04] LABS: Amorphous Sediment,Urine Rare /hpf; Bilirubin,Urine Negative (Negative); Blood,Urine Negative (Negative); Budding Yeast,Urine Occasional /hpf; Calcium Oxalate Crystals,Urine Rare /hpf; Color,Urine Yellow; Glucose,Urine (UA) Negative (Negative); Hyaline Casts,Urine 1 /lpf (0-2); Ketones,Urine Negative (Negative); Leukocyte Esterase,Urine Negative (Negative); Nitrite,Urine Negative (Negative); PH, Urine 7.0 (5.0-8.0); Protein,Urine Negative (Negative); RBC,Urine 13 /hpf (0-5); Specific Gravity,Urine 1.017 (1.001-1.035); Urobilinogen,Urine <2.0 mg/dL (<2.0); WBC,Urine 4 /hpf (0-5)
[2025-03-05] MEDS ORDERED: NALOXONE 0.4 MG/ML 1 ML VIAL IV PRN (22:59)
[2025-03-05] MEDS ORDERED: MORPHINE SULFATE 4 MG/ML SYRINGE IV PRN (22:59)
[2025-03-05] MEDS: ACETAMINOPHEN TAB 325 MG TAB PO PRN (23:43)
[2025-03-06] MEDS ORDERED: MAGNESIUM HYDROXIDE PO PRN (02:06)
[2025-03-06] MEDS: MAGNESIUM HYDROXIDE 2,400 MG/30 ML CUP PO PRN (02:29)
[2025-03-06] MEDS: IPRATROPIUM-ALBUTEROL 3 ML NEB INHALATION SCH (06:24)
[2025-03-06] MEDS: LEVOTHYROXINE 112 MCG TAB PO SCH (06:39)
[2025-03-06] MEDS ORDERED: NON FORMULARY DRUG (Glucosamine/Chondr Su A Sod [Osteo Bi-Flex Caplet] 1 EACH Tablet) PO SCH (09:00)
[2025-03-06] MEDS: VALSARTAN 160 MG TAB PO SCH (09:22)
[2025-03-06] MEDS: CALCIUM CARBONATE 500 MG CHEWABLE PO SCH (09:22)
[2025-03-06] MEDS: ASCORBIC ACID 500 MG TAB PO SCH (09:22)
[2025-03-06] MEDS: CHOLECALCIFEROL 25 MCG (1000 IU) TABLET PO SCH (09:23)
--- NOTE | 2025-03-06 09:49 | US ---
EXAMINATION TYPE: US renal artery duplex complet DATE OF EXAM: 03/06/2025 COMPARISON: NONE CLINICAL INDICATION: Female, 84 years old with history of hypertension; Recurring UTIs, Hx BL Renal C ysts, recent chest pain and INDER TECHNIQUE: Grayscale, color Doppler and spectral Doppler imaging of the bilateral renal arteries and kidneys. FINDINGS: MEASUREMENTS: RENAL SIZE: Right Kidney: 8.3 x 4.9 x 5.0 cm Left Kidney: 8.8 x 5.1 x 4.4 cm Right Kidney: Simple cyst redemonstrated, multiple ? Calcifications vs stones throughout Left Kidney: Simple cyst redemonstrated, multiple ? Calcifications vs stones throughout Abd Aorta: Calcific throughout, No AAA Visualized. RESISTANCE INDEX Right: 1.1 Left: 0.88 RA/AO RATIO (< 3.5 ) Right: 1.4 Left: 1.6 RENAL ARTERY VELOCITY ( < 180 cm/s) Right: 123 Left: 139 Freight Team Associate Notes: Difficult exam - patients kidneys moved with probe pressure. Appropriate color Doppler flow and spectral waveforms to the kidneys bilaterally. Grayscale imaging of the kidneys and show no evidence for hydronephrosis or mass. No renal calculi or cysts visualized. IMPRESSION: No evidence for renal artery stenosis bilaterally. [facility], , 03/06/2025 9:46 AM
--- NOTE | 2025-03-06 11:38 | P.CRDCN ---
History of Present Illness Consult date: 03/06/25 Consult reason: chest pain History of present illness: The patient is an 84-year-old to the emergency room was ambulating around her grocery store when she developed sharp pain in her chest which lasted approximately 5 minutes. Patient states she has had this pain within the last several months and follows with a composition professor in [facility]. She did recently see her composition professor where an EKG was performed in office and was told it was normal. She does have a history of hypertension, which is difficult to control. Her amlodipine was recently increased to 10 mg. DIAGNOSTICS: EKG shows sinus mechanism with normal CT narrow QRS Chest x-ray shows CTA of the chest shows atelectasis/groundglass opacities. No evidence of pulmonary emboli Lab data: WBC 6.9, hemoglobin 12.2, hematocrit 37.5, platelet 169, D-dimer 0.92, sodium 137, potassium 3.7, BUN 28, creatinine 0.59, magnesium 2.1, troponins negative x 2, TSH 4.2 REVIEW OF SYSTEMS: No fever or chills. No cough or expectoration. No diaphoresis. Patient denies headache, dizziness, blurred vision, double vision. Patient denies any stomach discomfort. No nausea, vomiting. No hematochezia. No hematemesis. Denies any black stools or blood in his stools. Denies dysuria or hematuria. No muscle weakness or numbness. No current chest discomfort. No difficulty breathing. PHYSICAL EXAMINATION: This is a 84-year-old female in no apparent distress at the time of my examination. HEENT: Head is atraumatic, normocephalic. Pupils are equal, round. There is no jugular venous distention. No carotid bruit is heard. CHEST EXAMINATION: Lungs are clear to auscultation. No chest wall tenderness is noted on palpation or with deep breathing. HEART EXAMINATION: Heart regular rate and rhythm. S1, S2 heard. No murmurs, gallops or rub. ABDOMEN: Soft, nontender. Bowel sounds are heard. No organomegaly noted. EXTREMITIES: 2+ peripheral pulses with no evidence of peripheral edema and no calf tenderness noted. NEUROLOGIC EXAMINATION: Patient is awake, alert and oriented x3. FINAL ASSESSMENT AND PLAN: Chest discomfort Elevated D-dimer History hypertension History of hiatal hernia PLAN: Manual blood pressure readings Switch lisinopril to valsartan Continue home dose of amlodipine and carvedilol Renal artery Doppler Further recommendations to be based upon clinical course I am dictating on behalf of Dr Davie Polo's history/physical and assessment/plan. 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 History of Any Multi-Drug Resistant Organisms: None Reported Past Surgical History: Appendectomy, Bladder Surgery, Breast Surgery, Hysterectomy, Orthopedic Surgery, Tonsillectomy Additional Past Surgical History / Comment(s): Bladder suspensions x4, benign biopsy left breast x2, lower lip surgery, skin cancer removed L ankle, shoulder surgery/cannot recall laterality/spurs removed, L wrist carpal tunnel release, EGD, recent colonoscopy unsuccessful d/t poor prep, previous colonoscopy, difficulty swallowing Past Anesthesia/Blood Transfusion Reactions: Postoperative Nausea & Vomiting (PONV) Additional Past Anesthesia/Blood Transfusion Reaction / Comment(s): Severe PONV, pt has never had a blood transfusion. Past Psychological History: No Psychological Hx Reported Additional Psychological History / Comment(s): Pt resides with her spouse of 64 yrs. She occasionally uses a cane. Smoking Status: Never smoker Past Alcohol Use History: None Reported Past Drug Use History: None Reported - Past Family History Brother(s) Family Medical History: Cancer Additional Family Medical History / Comment(s): Bladder cancer. Father Family Medical History: Deep Vein Thrombosis (DVT), Hypertension, Myocardial Infarction ([place]) Additional Family Medical History / Comment(s): . Mother Family Medical History: CVA/TIA, Hypertension Sister(s) Family Medical History: Cancer, CVA/TIA Additional Family Medical History / Comment(s): Uterine cancer. Medications and Allergies Home Medications Medication Instructions Recorded Confirmed Type Amitriptyline HCl [Elavil] 10 mg PO HS 08/20/15 03/06/25 History Aspirin [Adult Low Dose Aspirin EC] 81 mg PO HS 08/20/15 03/06/25 History Glucosamine/Chondr Kay A Sod [Osteo 1 tab PO DAILY 08/20/15 03/06/25 History Bi-Flex Caplet] Rosuvastatin [Crestor] 20 mg PO HS 08/20/15 03/06/25 History amLODIPine [Norvasc] 10 mg PO HS 08/20/15 03/06/25 History Ibandronate Sodium [Boniva] 150 mg PO Q30D 11/02/20 03/06/25 History Multivit-Min/Iron/Folic/Lutein 1 tab PO HS 11/02/20 03/06/25 History [Centrum Silver Women Tablet] Cholecalciferol [Vitamin D3 (25 25 mcg PO DAILY 02/18/22 03/06/25 History Mcg = 1000 Iu)] Cranberry Fruit Extract [Cranberry] 500 mg PO DAILY 02/18/22 03/06/25 History Levothyroxine Sodium [Synthroid] 112 mcg PO DAILY 02/18/22 03/06/25 History [place]-3/Dha/Epa/Fish Oil [Fish Oil 1 cap PO DAILY 06/13/22 03/06/25 History 1,000 mg Softgel] Vit C/E/Zn/Coppr/Lutein/Zeaxan 1 cap PO BID 10/17/22 03/06/25 History [Preservision Areds 2 Softgel] Oxybutynin Chloride [oxyBUTYnin 10 mg PO DAILY 12/17/22 03/06/25 History chloride ER] carvediloL [Coreg*] 12.5 mg PO BID 12/17/22 03/06/25 History Ascorbic Acid [Vitamin C] 1,000 mg PO DAILY 03/06/25 03/06/25 History Nystatin 100,000Unit/gm Cream 1 applic TOPICAL BID PRN 03/06/25 03/06/25 History [Mycostatin Cream] Omeprazole [PriLOSEC] 40 mg PO Q48H 03/06/25 03/06/25 History lisinopriL [Prinivil] 20 mg PO BID 03/06/25 03/06/25 History Allergies Allergy/AdvReac Type Severity Reaction Status Date / Time adhesive Allergy Rash/Hives Verified 03/06/25 09:58 codeine Allergy Nausea & Verified 03/06/25 09:58 Vomiting Physical Exam Vitals: Vital Signs Temp Pulse Pulse Resp BP BP Pulse Ox 03/06/25 01:08 97.6 F 56 L 17 197/63 99 03/05/25 23:44 97.8 F 70 18 165/71 98 03/05/25 20:28 56 L 18 162/79 99 03/05/25 19:59 62 18 180/68 96 03/05/25 19:04 97.5 F L 60 20 186/65 98 Intake and Output 03/05/25 03/06/25 03/06/25 22:59 06:59 14:59 Other: # Voids 1 Weight 49.442 kg 49.442 kg Results 03/05/25 19:24 03/05/25 19:24 Cardiac Enzymes 03/05/25 03/05/25 03/06/25 Range/Units 19:24 19:24 01:03 AST 36 (14-36) U/L Troponin I <0.012 <0.012 (0.000-0.034) ng/mL 03/06/25 Range/Units 03:18 AST (14-36) U/L Troponin I <0.012 (0.000-0.034) ng/mL Coagulation 03/05/25 Range/Units 19:24 PT 11.0 (10.0-12.5) sec APTT 25.8 (22.0-30.0) sec CBC 03/05/25 Range/Units 19:24 WBC 6.93 (4.50-10.00) 10*3/uL RBC 4.00 L (4.10-5.20) 10*6/uL Hgb 12.2 (12.0-15.0) g/dL Hct 37.5 (37.2-46.3) % Plt Count 169 (140-440) 10*3/uL Comprehensive Metabolic Panel 03/05/25 Range/Units 19:24 Sodium 137 (137-145) mmol/L Potassium 3.7 (3.5-5.1) mmol/L Chloride 103 (98-107) mmol/L Carbon Dioxide 26 (22-30) mmol/L BUN 28 H (7-17) mg/dL Creatinine 0.59 (0.52-1.04) mg/dL Glucose 141 H (74-99) mg/dL Calcium 9.7 (8.4-10.2) mg/dL AST 36 (14-36) U/L ALT 44 H (4-34) U/L Alkaline Phosphatase 96 (38-126) U/L Total Protein 6.1 L (6.3-8.2) g/dL Albumin 4.0 (3.5-5.0) g/dL Current Medications Generic Name Dose Route Start Last Admin Trade Name Freq PRN Reason Stop Dose Admin Acetaminophen 650 mg 03/05/25 22:59 03/05/25 23:43 Acetaminophen Tab 325 Mg Tab PO 650 mg Q6HR PRN Administration Mild Pain or Fever > 100.5 Albuterol/Ipratropium 3 ml 03/06/25 08:00 03/06/25 06:24 Ipratropium-Albuterol 3 Ml Neb INHALATION Not Given RT-QID [facility] Amitriptyline HCl 10 mg 03/06/25 21:00 Amitriptyline Hcl 10 Mg Tab PO HS [facility] Amlodipine Besylate 5 mg 03/06/25 21:00 Amlodipine 5 Mg Tab PO HS [facility] Ascorbic Acid 1,000 mg 03/06/25 09:00 Ascorbic Acid 500 Mg Tab PO QAM [facility] Aspirin 81 mg 03/06/25 21:00 Aspirin 81 Mg PO HS [facility] Calcium Carbonate/Glycine 500 mg 03/06/25 09:00 Calcium Carbonate 500 Mg Chewable PO QAM [facility] Carvedilol 3.125 mg 03/06/25 07:30 03/06/25 06:39 Carvedilol 3.125 Mg Tab PO 3.125 mg BID-W/MEALS [facility] Administration Cholecalciferol 25 mcg 03/06/25 09:00 Cholecalciferol 25 Mcg (1000 Iu) Tablet PO QAM [facility] Levothyroxine Sodium 112 mcg 03/06/25 06:30 03/06/25 06:39 Levothyroxine 112 Mcg Tab PO 112 mcg DAILY@0630 [facility] Administration Lisinopril 40 mg 03/06/25 09:00 Lisinopril 20 Mg Tab PO QAM [facility] Magnesium Hydroxide 2,400 mg 03/06/25 02:09 03/06/25 02:29 Magnesium Hydroxide 2,400 Mg/30 Ml Cup PO 2,400 mg HS PRN Administration Constipation Morphine Sulfate 4 mg 03/05/25 22:59 Morphine Sulfate 4 Mg/Ml Syringe IV Q4HR PRN Severe Pain (Scale 7 to 10) Naloxone HCl 0.2 mg 03/05/25 22:59 Naloxone 0.4 Mg/Ml 1 Ml Vial IV Q2M PRN Opioid Reversal Non-Formulary Medication 150 mg 03/10/25 09:00 Ibandronate Sodium [Boniva] PO Q30D RAFIA Intake and Output 03/05/25 03/06/25 03/06/25 22:59 06:59 14:59 Other: # Voids 1 Weight 49.442 kg 49.442 kg 03/05/25 19:24 03/05/25 19:24
[2025-03-06] MEDS: ASPIRIN 81 MG PO SCH (20:40)
[2025-03-06] MEDS: AMITRIPTYLINE HCL 10 MG TAB PO SCH (20:40)
[2025-03-06] MEDS: amLODIPine 10 MG TAB PO SCH (20:40)
[2025-03-06] MEDS ORDERED: amLODIPine 5 MG TAB PO SCH (21:00)
--- NOTE | 2025-03-07 02:27 | PN ---
PROGRESS NOTE SUBJECTIVE: Came in with chest pain. OBJECTIVE: CARDIOVASCULAR: S1, S2. LUNGS: Transmitted upper sounds. GI: Soft. HEMATOLOGY: Negative Homans. PSYCH: Fair mood and affect. NEUROLOGIC: Cranial nerves intact with just acceleration. ASSESSMENT: Chronic obstructive pulmonary disease. Cardiology saw her. Possible discharge home once cleared by Cardiology. Renal artery duplex showed no AAA. Renal artery is normal. Prognosis guarded. Please see further orders. Once cleared by Cardiology, we will discharge home, CTA of the chest, and chest echo. MMODL / IJN: [id number] /
--- NOTE | 2025-03-07 09:18 | PN ---
PROGRESS NOTE SUBJECTIVE: Bianca is an 84-year-old lady with history of hypertension, hypothyroidism, dyslipidemia and COPD, who presents to hospital with chest pain. Her chest discomfort is in the form of precordial chest pressure that radiated across her chest. On her initial presentation, blood pressure was well controlled. Cardiac enzymes have been negative. EKG shows sinus rhythm with nonspecific ST-T wave changes. She has had 2 episodes of chest discomfort, the one that brought her into hospital and an episode before, each lasted for about 5 minutes. At the time of my evaluation this morning, she is chest pain free, hemodynamically stable and in no apparent distress. I advised her to undergo a Lexiscan and if there is ischemia, we will perform cardiac catheterization, if not we will treat her with optimal medical therapy. We will obtain a 2D echo to evaluate her LV function. Lexiscan will be done tomorrow as she is eating her breakfast. OBJECTIVE: GENERAL: On exam, comfortable at rest. VITAL SIGNS: Stable. Blood pressure is elevated at 157/62, respiratory rate 18, O2 saturation is 99% on room air. NECK: There is no jugular venous distention. CHEST: Reveals good air entry bilaterally. HEART: Reveals first and second heart sounds. No gallop. ABDOMEN: Soft. EXTREMITIES: Exam of extremities did not reveal any edema. Peripheral pulses are felt. LABORATORY DATA: Labs show hemoglobin of 12.2, creatinine of 0.5. Two sets of troponins are negative. TSH is 4.2. ASSESSMENT: 1. Chest pain, rule out coronary artery disease. 2. Hypertension. PLAN: We will follow echocardiogram and Lexiscan for further evaluation. MMODL / IJN: [id number] /
[2025-03-07] MEDS: ISOSORBIDE MONONITRATE ER 30 MG TAB.ER.24H PO SCH (09:30)
--- NOTE | 2025-03-08 02:56 | PN ---
PROGRESS NOTE SUBJECTIVE: Kisha Staley came in with chest pain, at a grocery store, heaviness in the chest. CTA was negative for PE. History of hypertension, hypothyroidism, COPD, dyslipidemia. EKG showed nonspecific changes. They got an echo and Lexiscan stress test. We will evaluate. If she passes that, she can go home. Otherwise, maybe a heart catheter to treat medically. OBJECTIVE: VITAL SIGNS: Stable, afebrile. CARDIOVASCULAR: S1, S2. Blood pressure 137/62, O2 of 99% on room air, respiratory rate is 18. LUNGS: Good air bilaterally. HEART: S1, S2. ABDOMEN: Soft. EXTREMITIES: No edema. She has been up and ambulating. Hemoglobin 12.2, creatinine 0.5. Chest pain, rule out coronary artery disease, COPD, mild dehydration, hypertension. Cardiology clear for discharge. Await for echo and stress test. Prognosis is guarded. MMODL / IJN: [id number] /
[2025-03-08] MEDS ORDERED: REGADENOSON 0.4 MG/5 ML SYRINGE IV PRN (07:00)
[2025-03-08] MEDS ORDERED: CAFFEINE CITRATE 60 MG/3 ML VIAL IV PRN (07:00)
[2025-03-08] MEDS ORDERED: AMINOPHYLLINE 500 MG/20 ML VIAL IV PRN (07:00)
--- NOTE | 2025-03-08 11:13 | CA ---
Lexiscan Nuclear Stress Test Report Name: Kisha Staley Exam Date: 03/08/2025 09:21 Exam Location: [facility] Stress Ht (in): 51 Wt (lb): 109 BSA: 1.28 Ordering Phys: Saud Conner MD Referring Phys: SAUD CONNER,, Technologist: LETICIA MCCARTHY Age: 84 Gender: F : 1940 Procedure CPT: Indications: Reflex order-Stress test ICD-10 Codes: Patient History: CHEST PAIN, HTN, HYPERCHOLESTEROLEMIA Medications: SEE CHART,,,,, Meds past 24 hrs: Pretest Chest Pain: STRESS TEST Lexiscan Protocol Exercise Duration (min:sec): 02:[address] Depressions (mm): Angina Score: Hurley Score: Resting HR (bpm): 56 Peak HR (bpm): 82 Resting BP (mmHg): 169 / 62 Peak BP (mmHg): 169 / 62 MPHR: 135 Target HR: 115 % MPHR: 61 METS: 1.0 Total Dose: Peak Dose: Atropine: Double Product: 75252 BP Response: Stress Termination: INFUSION COMPLETE Stress Symptoms: NO SYMPTOMS Stress Summary: ECG ANALYSIS Resting ECG: Normal sinus rhythm normal axis normal intervals Stress ECG: Patient was given intravenous Lexiscan as a protocol did not have chest pain or diagnostic ST segment depression CONCLUSIONS Negative stress test by EKG criteria Cardiolite portion of the stress test will be reported separately Dr. Saud Conner MD (Electronically Signed) Final Date: 08 March 2025 11:12
--- NOTE | 2025-03-08 11:14 | NM ---
EXAMINATION TYPE: NM stress lexiscan cardiolite DATE OF EXAM: 03/08/2025 COMPARISON: NONE CLINICAL INDICATION: Female, 84 years old with history of chest pain, sob; TECHNIQUE: After the intravenous administration of 10.37 mCi Tc 99m Sestamibi - Cardiolite resting S PECT images acquired 45 minutes post injection. The patient received 0.4mg Lexiscan, 25.6 mCi Tc 99m Sestamibi - Stress images obtained [address] injection FINDINGS: Review of stress and rest SPECT images demonstrates reversible ischemia involving the inferior latera l wall. Correlate for stress-induced ischemia. Gated analysis shows normal wall motion with an estima ravinder left ventricular ejection fraction of 41 %. IMPRESSION: Correlate for stress-induced ischemia inferior lateral wall. [facility], , 03/08/2025 11:11 AM
[2025-03-08] MEDS ORDERED: ALPRAZolam 0.25 MG TAB PO PRN (11:36)
[2025-03-08] MEDS ORDERED: NITROGLYCERIN SL TABS 0.4 MG TAB SUBLINGUAL PRN (11:36)
[2025-03-08] MEDS ORDERED: ALPRAZolam 0.5 MG TAB PO PRN (11:36)
--- NOTE | 2025-03-08 11:36 | P.PN ---
Subjective HISTORY OF PRESENT ILLNESS: Patient examined this morning the bedside. Patient currently denies any chest pain or pressure. She denies any shortness of breath. Vital signs are stable. Patient underwent Lexiscan stress test revealing stress-induced ischemia inferior lateral wall. PHYSICAL EXAM: VITAL SIGNS: Reviewed. GENERAL: Well-developed in no acute distress. NECK: Supple. No JVD or thyromegaly LUNGS: Respirations even and unlabored. Lungs essentially clear to auscultation bilaterally. HEART: Regular rate and rhythm. S1 and S2 heard. EXTREMITIES: Normal range of motion. No clubbing or cyanosis. Peripheral pulses intact. No lower extremity edema ASSESSMENT: Chest pain, status post abnormal Lexiscan Hypertension Hyperlipidemia Hypothyroidism PLAN: Continue current cardiac medications Add atorvastatin 40 mg at night N.p.o. at midnight Patient to undergo cardiac catheterization tomorrow with Dr. Conner Further recommendations pending patient course Nurse practitioner note has been reviewed by physician. Signing provider agrees with the documented findings, assessment, and plan of care documented by G[employer]S MANAGER as a scribe. Objective - Vital Signs Vital signs: Vital Signs Temp 97.9 F 03/08/25 07:07 Pulse 61 03/08/25 07:07 Resp 15 03/08/25 07:07 BP 146/62 03/08/25 07:07 Pulse Ox 98 03/08/25 07:07 FiO2 Intake & Output 03/07/25 03/08/25 03/08/25 18:59 06:59 18:59 Intake Total 180 Balance 180 Intake: Oral 180 Other: Voiding Method Toilet Toilet # Voids 2 - Labs CBC & Chem 7: 03/05/25 19:24 03/05/25 19:24
[2025-03-08 14:54] VITALS: RESP 16
--- NOTE | 2025-03-08 18:18 | PN ---
PROGRESS NOTE SUBJECTIVE: 84-year-old white female, status post stress test, shows ischemia in the inferior lateral wall, getting a heart cath tomorrow. OBJECTIVE: VITAL SIGNS: Blood pressure is running low, but high today 150s over 60s. CARDIOVASCULAR: S1, S2. LUNGS: Transmitted upper sounds. GI: Soft. HEMATOLOGY: Negative Homans. ASSESSMENT AND PLAN: Unstable angina, abnormal stress test, chronic obstructive pulmonary disease, pulmonary hypertension, scheduled for heart catheterization tomorrow after she had an abnormal stress test. Prognosis guarded. Please see further orders per Cardiology. MMODL / IJN: [id number] /
[2025-03-08] MEDS: ATORVASTATIN 40 MG TAB PO SCH (20:41)
[2025-03-09] MEDS: SODIUM CHLORIDE 0.9% 1,000 ML in EMPTY BAG 1 BAG IV SCH (00:19)
[2025-03-09] MEDS: ATORVASTATIN 80 MG TAB PO ONE (06:09)
[2025-03-09] MEDS: ASPIRIN 325 MG TAB PO ONE (06:09)
[2025-03-09] MEDS ORDERED: HEPARIN SODIUM,PORCINE 10,000 UNIT in SODIUM CHLORIDE 0.9% 1,000 ML IRRIGATION PRN (07:00)
[2025-03-09] MEDS ORDERED: HEPARIN SODIUM,PORCINE (1 ML) 2,500 UNIT in SODIUM CHLORIDE 0.9% 250 ML IRRIGATION PRN (07:00)
[2025-03-09] MEDS: IV FLUID CONTINUATION 1,000 ML IV ONE (08:37)
[2025-03-09] MEDS: ONDANSETRON 4 MG/2 ML VIAL IVP ONE (10:31)
[2025-03-09] MEDS: fentaNYL (PF) 50 MCG/1 ML VIAL IVP ONE (10:31)
[2025-03-09] MEDS: LIDOCAINE 2% (PF) 20 MG/ML 5 ML VIAL SQ ONE (10:31)
[2025-03-09] MEDS: MIDAZOLAM 2 MG/2 ML VIAL IVP ONE (10:31)
[2025-03-09] MEDS: VERAPAMIL 2.5 MG/ML 4 ML VIAL INTRAARTER ONE (10:32)
[2025-03-09] MEDS: HEPARIN SODIUM 1,000 UN/ML (10ML VL) IVP ONE (10:36)
[2025-03-09] MEDS: NITROGLYCERIN OINT 1 INCH/GM PACKET TOPICAL ONE (10:42)
[2025-03-09] MEDS: SODIUM CHLORIDE 0.9% 1,000 ML IV ONE (10:42)
[2025-03-09] MEDS: HEPARIN SODIUM,PORCINE 10,000 UNIT in SODIUM CHLORIDE 0.9% 1,000 ML IRRIGATION ONE (10:43)
[2025-03-09] MEDS: HEPARIN SODIUM,PORCINE (1 ML) 2,500 UNIT in SODIUM CHLORIDE 0.9% 250 ML IRRIGATION ONE (10:43)
[2025-03-09] MEDS: IOPAMIDOL-370 100ML BTL INTRATHECA ONE (10:44)
--- NOTE | 2025-03-09 11:09 | CC ---
CARDIAC CATHETERIZATION REPORT INDICATION: Chest pain with abnormal stress test. PROCEDURE NOTE: After obtaining informed consent, left heart catheterization and coronary angiogram were performed via the right radial artery using standard Ron catheters. The patient tolerated the procedure well without any obvious immediate complications. The patient received moderate conscious sedation and total sedation time was 11 minutes. Right radial artery access was obtained using Seldinger technique. 6-Thai sheath was placed. Catheters and wires were floated into the ascending aorta under fluoroscopic guidance. The patient received verapamil and heparin per protocol and a TR band will be used for hemostasis. FINDINGS: 1. Hemodynamics: Left ventricular end-diastolic pressure is 12 mm. There is no significant gradient across the aortic valve. 2. Left ventriculogram: Left ventriculogram is not performed. 3. Angiographic data: a.Right coronary artery: Right coronary artery is a large dominant vessel and is free of significant stenosis. Left main coronary artery appears calcified, but is free of significant stenosis, divides into left anterior descending coronary artery and circumflex coronary artery. b.LAD and its branches, circumflex coronary artery and its branches are free of significant stenosis. There is mild nonobstructive disease involving the circ and the LAD. CONCLUSIONS: Mild nonobstructive coronary artery disease. PLAN: The patient's management is going to be in the form of risk factor modification and optimal medical therapy. MMODL / IJN: [id number] /
[2025-03-09] MEDS ORDERED: RX INFO: IV CONTRAST WAS GIVEN 1 EACH MISC MISCELLANE PRN (12:52)
[2025-03-09 14:27] VITALS: TEMP 97.6
[2025-03-09 14:29] VITALS: BP 151/63; PULSE 62
[2025-03-09] MEDS: SODIUM CHLORIDE 0.9% 1,000 ML IV SCH (15:19)
--- NOTE | 2025-03-10 07:39 | CA ---
Transthoracic Echo Report Name: Kisha Staley Age: 84 Gender: F : 1940 Exam Date: 03/09/2025 15:16 Exam Location: [place] Echo Ht (in): 61 Wt (lb): 109 Ordering Physician: Saud Conner MD ([id number]) Attending/Referring Phys: Dalila BURTON Administrative Asst Kerry Reyes RDCS Procedure CPT: Indications: Chest pain, SOB Cardiac Hx: Technical Quality: Good Contrast 1: Total Dose (mL): Contrast 2: Total Dose (mL): MEASUREMENTS (Male / Female) Normal Values 2D ECHO LV Diastolic Diameter PLAX 4.3 cm 4.2 - 5.9 / 3.9 - 5.3 cm LV Systolic Diameter PLAX 2.8 cm IVS Diastolic Thickness 1.1 cm 0.6 - 1.0 / 0.6 - 0.9 cm LVPW Diastolic Thickness 1.1 cm 0.6 - 1.0 / 0.6 - 0.9 cm LV Relative Wall Thickness 0.5 LA Systolic Diameter LX 3.4 cm 3.0 - 4.0 / 2.7 - 3.8 cm LV Diastolic Volume MOD 4C 52.9 cm??? LV Systolic Volume MOD 4C 17.5 cm??? LV Ejection Fraction MOD 4C 67.0 % LV Cardiac Index MOD 4C 1432.8 cm???/min???m??? LV Diastolic Length 4C 6.9 cm LV Systolic Length 4C 5.5 cm LV Diastolic Volume MOD 2C 71.1 cm??? LV Systolic Volume MOD 2C 28.0 cm??? LV Ejection Fraction MOD 2C 60.6 % LV Cardiac Index MOD 2C 1740.9 cm???/min???m??? LV Diastolic Length 2C 7.3 cm LV Systolic Length 2C 5.5 cm M-MODE Aortic Root Diameter MM 2.8 cm AV Cusp Separation MM 1.9 cm DOPPLER AV Peak Velocity 170.3 cm/s AV Peak Gradient 11.6 mmHg AV Mean Velocity 97.0 cm/s AV Mean Gradient 4.5 mmHg AV Velocity Time Integral 34.4 cm AI Peak Velocity 383.8 cm/s AI Peak Gradient 58.9 mmHg AI Pressure Half Time 494.7 ms Mitral E Point Velocity 94.5 cm/s Mitral A Point Velocity 136.0 cm/s Mitral E to A Ratio 0.7 MV Deceleration Time 326.1 ms MV E' Velocity 5.1 cm/s Mitral E to MV E' Ratio 18.4 TR Peak Velocity 249.9 cm/s TR Peak Gradient 25.0 mmHg Right Ventricular Systolic Press 35.0 mmHg FINDINGS Left Ventricle Left ventricular ejection fraction is estimated at 55-60 %. Left ventricular cavity size normal. Mildly increased septal wall thickness. Mildly increased posterior wall thickness. No obvious regional wall motion abnormalities. Right Ventricle Normal right ventricular size. Mild pulmonary hypertension. Right Atrium Normal right atrial size. No right atrial thrombus or mass seen. Left Atrium Normal left atrial size. No left atrial thrombus or mass present. Mitral Valve Mitral valve thickened. Moderate mitral annular calcification. Mild mitral regurgitation. Aortic Valve Trileaflet aortic valve. No aortic stenosis. Mild aortic regurgitation. Tricuspid Valve Structurally normal tricuspid valve. Mild tricuspid regurgitation. Pulmonic Valve Structurally normal pulmonic valve. Trace pulmonic regurgitation. Pericardium No pericardial or pleural effusion. Aorta Normal size aortic root and proximal ascending aorta. CONCLUSIONS Normal LV function Mild mitral aortic and tricuspid regurgitation Previewed by: Dr. Saud Conner MD (Electronically Signed) Final Date: 10 March 2025 07:38
[2025-03-10] MEDS ORDERED: NON FORMULARY DRUG (Ibandronate Sodium [Boniva] 150 MG Tablet) PO SCH (09:00)
== END 2025-03-09 16:20 | disposition home or self-care (01) | DRG 287 ==
LOC: EC 19:02 → 6NMEDSUR 23:48 → OBSVTOIN 23:49 → 6NMEDSUR 03-06 00:13
PROVIDERS: ADMIT Family Medicine; ATTEND Family Medicine
PROC: 4A02XM4 Measurement of Cardiac Total Activity, External Approach (ICD-10-PCS; 2025-03-08)
PROC: B2111ZZ Fluoroscopy of Multiple Coronary Arteries using Low Osmolar Contrast (ICD-10-PCS; 2025-03-09)
PROC: 4A023N7 Measurement of Cardiac Sampling and Pressure, Left Heart, Percutaneous Approach (ICD-10-PCS; principal; 2025-03-09 10:30)
DX: I25.110 Atherosclerotic heart disease of native coronary artery with unstable angina pectoris (principal); E03.9 Hypothyroidism, unspecified; J44.9 Chronic obstructive pulmonary disease, unspecified; I10 Essential (primary) hypertension; R94.39 Abnormal result of other cardiovascular function study; E86.0 Dehydration; E78.5 Hyperlipidemia, unspecified; H91.90 Unspecified hearing loss, unspecified ear; W19.XXXA Unspecified fall, initial encounter; Z79.82 Long term (current) use of aspirin; Z79.890 Hormone replacement therapy; Z79.899 Other long term (current) drug therapy; Z82.49 Family history of ischemic heart disease and other diseases of the circulatory system; Z85.828 Personal history of other malignant neoplasm of skin; Z90.710 Acquired absence of both cervix and uterus; Z88.5 Allergy status to narcotic agent; Z91.041 Radiographic dye allergy status
CPT/HCPCS: 36415; 70450; 71046; 71275; 72125; 78452; 80053; 81001; 83735; 84443; 84484; 85025; 85379; 85610; 85730; 93005; 93017; 93306; 93458; 93975; 94640; 94760; 96360; 96361; 99285